=== PATIENT | male | born 1955 | race Caucasian/White ===

== ENCOUNTER 2018-03-11 11:12 | Day surgery (SDC) | payer OTHER ==
[~2018-03-11] VITALS: Ht 180.3 cm; Wt 129.3 kg
[~2018-03-11 11:12] MED LIST: ALBIPROI INH; ANDROGEL PUMP TOP; ANTIBIOTIC; ATECHL PO; ATEN25; BP MEDICATION; BUPR75 PO; CEPH500; CEPH500 PO; GABA600 PO; HYDACE10B PO; HYDR1TAB94 PO; Hydrocodone-Ap1 EA20 PO; IBUP400 PO; IBUP800; IBUP800 PO; LACT10SY PO; LEVSOD50 PO; LISI5 PO; LISINOPRIL PO; NAPR500 PO; OMEG1CAP30 PO; OXYACE5T; OXYACE5T PO; OXYC10ER PO; OXYC15ER PO; SERT100 PO; SULTRIDS PO; XARELTO10 MG PO
[2018-03-12 04:51] LABS: BASOPHILS ABSOLUTE AUTO 0.07 K/mm3 (0.00-0.23); BASOPHILS PERCENT AUTO 1 % (0-2); EOSINOPHILS ABSOLUTE AUTO 0.01 K/mm3 (0.00-0.68); EOSINOPHILS PERCENT AUTO 0 % (0-6); Hematocrit 46.6 % (37.0-53.0); Hemoglobin 15.9 g/dL (13.5-17.5); IMMATURE GRAN ABSOLUTE AUTO 0.09 K/mm3 (0.00-0.10); IMMATURE GRAN PERCENT AUTO 1 % (0-1); LYMPHOCYTES ABSOLUTE AUTO 2.74 K/mm3 (0.84-5.20); LYMPHOCYTES PERCENT AUTO 18 % (21-46); MONOCYTES ABSOLUTE AUTO 1.13 K/mm3 (0.16-1.47); MONOCYTES PERCENT AUTO 8 % (4-13); Mean Corpuscular HGB 31.7 pg (26.0-34.0); Mean Corpuscular HGB Conc 34.1 g/dL (31.5-36.5); Mean Corpuscular Volume 93 fL (80-100); Mean Platelet Volume 10.4 fL (9.1-12.4); NEUTROPHILS ABSOLUTE AUTO 10.99 K/mm3 (1.96-9.15); NEUTROPHILS PERCENT AUTO 73 % (41-73); Platelet Count 320 K/mm3 (150-400); RDW Standard Deviation 47.4 fL (35.1-46.3); Red Blood Cell Count 5.02 M/mm3 (4.30-5.90); White Blood Cell Count 15.03 K/mm3 (4.00-11.30)
[2018-03-12 05:19] LABS: Anion Gap 10 mmol/L (6-16); Blood Urea Nitrogen 28 mg/dL (8-24); Bun/Creatinine Ratio 26.4 (12.0-20.0); CO2, Blood 23 mmol/L (21-32); Calcium, Blood 9.6 mg/dL (8.5-10.1); Chloride, Blood 107 mmol/L (98-108); Creatinine, Blood 1.06 mg/dL (0.60-1.20); Glomerular Filtration Rate >60 (60-); Glucose, Blood 146 mg/dL (70-99); Magnesium, Blood 2.2 mg/dL (1.6-2.4); Potassium, Blood 3.6 mmol/L (3.5-5.5); Sodium, Blood 140 mmol/L (136-145)
[2018-03-12] MEDS ORDERED: Percocet 5-3251 EACH PO (13:34)
[2018-03-12] MEDS ORDERED: ASPI325EC PO (13:35)
== END 2018-03-12 15:22 | disposition home or self-care (01) ==
LOC: ORSCMMR 11:12 → ORD 13:00 → ORSCMMR 16:35 → SURS 16:35 → ORSCMMR 16:35 → SURS 03-12 15:22
PROVIDERS: Orthopaedic Surgery
PROC: 0SRW0JZ Replacement of Left Knee Joint, Tibial Surface with Synthetic Substitute, Open Approach (ICD-10-PCS; principal; 2018-03-11 10:45)
PROC: 0SPW0JZ Removal of Synthetic Substitute from Left Knee Joint, Tibial Surface, Open Approach (ICD-10-PCS; principal; 2018-03-11 10:45)
DX: M25.362 Other instability, left knee (principal); Z96.652 Presence of left artificial knee joint; I10 Essential (primary) hypertension; F17.210 Nicotine dependence, cigarettes, uncomplicated; E66.01 Morbid (severe) obesity due to excess calories; Z68.39 Body mass index [BMI] 39.0-39.9, adult; Z79.899 Other long term (current) drug therapy
CPT/HCPCS: 36415; 73560-LT; 80048; 82947; 83735; 85025; 86850; 86900; 86901; 88305; 97110; 97116; 97161; 97530; C1776; G8978; G8979; G8980; J0171; J0690; J0735; J1100; J1885; J2250; J2795; J3010; J7120

== ENCOUNTER → 2018-03-30 | Outpatient (CLI) | payer OTHER ==
[~2018-03-30] MED LIST changes: +ASPI325EC PO; +Percocet 5-3251 EACH PO
== END | disposition home or self-care (01) ==
LOC: LAB SHORT 14:35 → LAB 14:35
DX: L03.116 Cellulitis of left lower limb (principal); Z96.652 Presence of left artificial knee joint
CPT/HCPCS: 87070; 87205

== ENCOUNTER → 2018-04-08 | Outpatient (CLI) | payer OTHER ==
[2018-04-08 16:32] LABS: Body Fluid Crystals NEG (NEGATIVE)
[2018-04-08 17:06] LABS: BODY FLUID RBC 0.199 (0-0); RBC Count, Synovial Fluid 199000 /mm3 (0-0)
[2018-04-08 17:17] LABS: WBC Count, Synovial Fluid 42510 /mm3 (0-180)
[2018-04-08 17:22] LABS: Lymphs, Synovial Fluid 1 % (0-15); Monocytes/Macrophages, Synovia 1 % (0-65); Neutrophils, Synovial Fluid 98 % (0-24)
[2018-04-08 17:23] LABS: Appearance, Synovial Fluid Bloody (Clear); Color, Synovial Fluid Red (None-P Yel)
== END | disposition home or self-care (01) ==
LOC: LAB SHORT 15:50 → LAB 15:50
PROVIDERS: Orthopaedic Surgery
DX: M25.462 Effusion, left knee (principal)
CPT/HCPCS: 89051; 89060

== ENCOUNTER 2018-04-13 17:09 | Inpatient (IN) | payer OTHER ==
[~2018-04-13] VITALS: Ht 177.8 cm; Wt 126.0 kg
[2018-04-16 05:43] LABS: BASOPHILS ABSOLUTE AUTO 0.06 K/mm3 (0.00-0.23); BASOPHILS PERCENT AUTO 0 % (0-2); EOSINOPHILS PERCENT AUTO 0 % (0-6); Hematocrit 37.7 % (37.0-53.0); Hemoglobin 12.4 g/dL (13.5-17.5); IMMATURE GRAN ABSOLUTE AUTO 0.08 K/mm3 (0.00-0.10); IMMATURE GRAN PERCENT AUTO 1 % (0-1); LYMPHOCYTES ABSOLUTE AUTO 1.91 K/mm3 (0.84-5.20); LYMPHOCYTES PERCENT AUTO 14 % (21-46); MONOCYTES ABSOLUTE AUTO 1.11 K/mm3 (0.16-1.47); MONOCYTES PERCENT AUTO 8 % (4-13); Mean Corpuscular HGB 30.6 pg (26.0-34.0); Mean Corpuscular HGB Conc 32.9 g/dL (31.5-36.5); Mean Corpuscular Volume 93 fL (80-100); Mean Platelet Volume 9.8 fL (9.1-12.4); NEUTROPHILS ABSOLUTE AUTO 10.32 K/mm3 (1.96-9.15); NEUTROPHILS PERCENT AUTO 77 % (41-73); Platelet Count 351 K/mm3 (150-400); RDW Coefficient Variation 13.7 % (11.7-14.2); RDW Standard Deviation 47.3 fL (35.1-46.3); Red Blood Cell Count 4.05 M/mm3 (4.30-5.90); White Blood Cell Count 13.48 K/mm3 (4.00-11.30)
[2018-04-16 06:04] LABS: Anion Gap 9 mmol/L (6-16); Blood Urea Nitrogen 22 mg/dL (8-24); Bun/Creatinine Ratio 21.8 (12.0-20.0); CO2, Blood 24 mmol/L (21-32); Chloride, Blood 106 mmol/L (98-108); Creatinine, Blood 1.01 mg/dL (0.60-1.20); Glomerular Filtration Rate >60 (60-); Glucose, Blood 173 mg/dL (70-99); Potassium, Blood 4.2 mmol/L (3.5-5.5); Sodium, Blood 139 mmol/L (136-145)
[2018-04-17 09:22] LABS: BASOPHILS ABSOLUTE AUTO 0.13 K/mm3 (0.00-0.23); BASOPHILS PERCENT AUTO 1 % (0-2); EOSINOPHILS PERCENT AUTO 0 % (0-6); Hemoglobin 13.3 g/dL (13.5-17.5); IMMATURE GRAN ABSOLUTE AUTO 0.08 K/mm3 (0.00-0.10); IMMATURE GRAN PERCENT AUTO 1 % (0-1); LYMPHOCYTES ABSOLUTE AUTO 2.95 K/mm3 (0.84-5.20); LYMPHOCYTES PERCENT AUTO 26 % (21-46); MONOCYTES ABSOLUTE AUTO 0.95 K/mm3 (0.16-1.47); MONOCYTES PERCENT AUTO 8 % (4-13); Mean Corpuscular HGB 30.5 pg (26.0-34.0); Mean Corpuscular HGB Conc 32.4 g/dL (31.5-36.5); Mean Corpuscular Volume 94 fL (80-100); Mean Platelet Volume 9.9 fL (9.1-12.4); NEUTROPHILS ABSOLUTE AUTO 7.22 K/mm3 (1.96-9.15); NEUTROPHILS PERCENT AUTO 64 % (41-73); Platelet Count 363 K/mm3 (150-400); RDW Coefficient Variation 13.8 % (11.7-14.2); Red Blood Cell Count 4.36 M/mm3 (4.30-5.90); White Blood Cell Count 11.33 K/mm3 (4.00-11.30)
[2018-04-17 09:38] LABS: Anion Gap 7 mmol/L (6-16); Blood Urea Nitrogen 25 mg/dL (8-24); Bun/Creatinine Ratio 25.3 (12.0-20.0); CO2, Blood 27 mmol/L (21-32); Calcium, Blood 9.4 mg/dL (8.5-10.1); Chloride, Blood 105 mmol/L (98-108); Creatinine, Blood 0.99 mg/dL (0.60-1.20); Glomerular Filtration Rate >60 (60-); Glucose, Blood 160 mg/dL (70-99); Sodium, Blood 139 mmol/L (136-145)
[2018-04-17 09:51] LABS: Vancomycin, Trough 20.2 ug/mL (5.0-10.0)
[2018-04-18 03:58] LABS: BASOPHILS ABSOLUTE AUTO 0.08 K/mm3 (0.00-0.23); BASOPHILS PERCENT AUTO 1 % (0-2); EOSINOPHILS PERCENT AUTO 0 % (0-6); Hematocrit 37.9 % (37.0-53.0); Hemoglobin 12.5 g/dL (13.5-17.5); IMMATURE GRAN ABSOLUTE AUTO 0.05 K/mm3 (0.00-0.10); IMMATURE GRAN PERCENT AUTO 1 % (0-1); LYMPHOCYTES ABSOLUTE AUTO 2.67 K/mm3 (0.84-5.20); LYMPHOCYTES PERCENT AUTO 27 % (21-46); MONOCYTES ABSOLUTE AUTO 1.08 K/mm3 (0.16-1.47); MONOCYTES PERCENT AUTO 11 % (4-13); Mean Corpuscular HGB 30.9 pg (26.0-34.0); Mean Corpuscular Volume 94 fL (80-100); Mean Platelet Volume 9.7 fL (9.1-12.4); NEUTROPHILS ABSOLUTE AUTO 5.95 K/mm3 (1.96-9.15); NEUTROPHILS PERCENT AUTO 61 % (41-73); Platelet Count 331 K/mm3 (150-400); RDW Coefficient Variation 13.7 % (11.7-14.2); RDW Standard Deviation 47.6 fL (35.1-46.3); Red Blood Cell Count 4.04 M/mm3 (4.30-5.90); White Blood Cell Count 9.83 K/mm3 (4.00-11.30)
[2018-04-18 04:14] LABS: Anion Gap 7 mmol/L (6-16); Blood Urea Nitrogen 26 mg/dL (8-24); CO2, Blood 27 mmol/L (21-32); Calcium, Blood 9.4 mg/dL (8.5-10.1); Chloride, Blood 107 mmol/L (98-108); Creatinine, Blood 0.93 mg/dL (0.60-1.20); Glomerular Filtration Rate >60 (60-); Glucose, Blood 125 mg/dL (70-99); Potassium, Blood 4.3 mmol/L (3.5-5.5); Sodium, Blood 141 mmol/L (136-145)
[2018-04-19 05:25] LABS: Vancomycin, Trough 15.8 ug/mL (5.0-10.0)
[2018-04-19] MEDS ORDERED: Percocet 5-3251 EACH PO ×2 (10:29)
[2018-04-19] MEDS ORDERED: ASPI325EC PO ×2 (10:30)
[2018-04-21 11:48] LABS: Creatinine, Blood 1.11 mg/dL (0.60-1.20); Vancomycin, Trough 16.6 ug/mL (5.0-10.0)
== END 2018-04-21 18:00 | disposition home or self-care (01) | DRG 486 ==
LOC: SURS 04-15 13:55 → PRE IP 04-15 15:30 → SURS 04-15 19:27
PROVIDERS: Orthopaedic Surgery; Pharmacist
PROC: 0SUW09Z Supplement Left Knee Joint, Tibial Surface with Liner, Open Approach (ICD-10-PCS; 2018-04-15)
PROC: 0QDH0ZZ Extraction of Left Tibia, Open Approach (ICD-10-PCS; 2018-04-15)
PROC: 0SPD09Z Removal of Liner from Left Knee Joint, Open Approach (ICD-10-PCS; principal; 2018-04-15 15:30)
PROC: 02HV33Z Insertion of Infusion Device into Superior Vena Cava, Percutaneous Approach (ICD-10-PCS; 2018-04-16)
PROC: B548ZZA Ultrasonography of Superior Vena Cava, Guidance (ICD-10-PCS; 2018-04-16)
DX: T84.54XA Infection and inflammatory reaction due to internal left knee prosthesis, initial encounter (principal); L03.116 Cellulitis of left lower limb; Z68.41 Body mass index [BMI] 40.0-44.9, adult; E66.01 Morbid (severe) obesity due to excess calories; I10 Essential (primary) hypertension; E78.1 Pure hyperglyceridemia; M19.91 Primary osteoarthritis, unspecified site; M54.5 Low back pain; G89.29 Other chronic pain; F17.210 Nicotine dependence, cigarettes, uncomplicated; Z96.652 Presence of left artificial knee joint
CPT/HCPCS: 36415; 73560-LT; 80048; 80202; 82565; 85025; 87070; 87075; 87205; 87493; 97110; 97116; 97161; 97530; C1751; C1776; G8978; G8979; G8980; J0690; J1100; J1885; J2250; J2405; J2543; J3010; J3370; J7050; J7120

== ENCOUNTER 2018-04-26 00:11 | Day surgery (SDC) | payer OTHER ==
[2018-04-26 13:58] LABS: Creatinine, Blood 1.04 mg/dL (0.60-1.20); Vancomycin, Trough 10.4 ug/mL (5.0-10.0)
== END 2018-04-26 16:27 | disposition home or self-care (01) ==
LOC: ATC 00:11
PROVIDERS: Orthopaedic Surgery
DX: T81.4XXA Infection following a procedure, initial encounter (principal); Z96.652 Presence of left artificial knee joint
CPT/HCPCS: 80202; 82565; 96365; 96366; J3370; J7050

== ENCOUNTER 2018-04-27 13:23 | Day surgery (SDC) | payer OTHER ==
[2018-04-28] MEDS ORDERED: VANCO 2 GR2 GM/250 M IV (13:45)
== END 2018-04-27 16:03 | disposition home or self-care (01) ==
LOC: ATC 13:23
DX: T81.4XXA Infection following a procedure, initial encounter (principal)
CPT/HCPCS: 96365; 96366; J3370; J7050

== ENCOUNTER 2018-04-28 00:25 | Day surgery (SDC) | payer OTHER ==
[2018-04-28] MEDS ORDERED: VANCO 2 GR2 GM/250 M IV (13:45)
[2018-05-03] MEDS ORDERED: DIPHEDRYL PO (13:49)
== END 2018-04-28 15:59 | disposition home or self-care (01) ==
LOC: ATC 00:25
DX: T81.4XXA Infection following a procedure, initial encounter (principal)
CPT/HCPCS: 96365; 96366; J3370; J7050

== ENCOUNTER 2018-04-29 00:09 | Day surgery (SDC) | payer OTHER ==
[~2018-04-29 00:09] MED LIST changes: +VANCO 2 GR2 GM/250 M IV
[2018-04-29 14:40] LABS: Creatinine, Blood 1.27 mg/dL (0.60-1.20); Vancomycin, Trough 11.2 ug/mL (5.0-10.0)
[2018-05-03] MEDS ORDERED: DIPHEDRYL PO (13:49)
== END 2018-04-29 15:30 | disposition home or self-care (01) ==
LOC: ATC 00:09
PROVIDERS: Orthopaedic Surgery
DX: T81.4XXA Infection following a procedure, initial encounter (principal)
CPT/HCPCS: 80202; 82565; 96374; J0696

== ENCOUNTER 2018-05-01 13:29 | Day surgery (SDC) | payer OTHER ==
[2018-05-01] MEDS ORDERED: Ceftriaxone2 G2 IV (15:23)
[2018-05-03] MEDS ORDERED: DIPHEDRYL PO (13:49)
== END 2018-05-01 13:53 | disposition home or self-care (01) ==
LOC: ATC 13:29
DX: T81.4XXA Infection following a procedure, initial encounter (principal)
CPT/HCPCS: 96374; J0696

== ENCOUNTER 2018-05-04 13:54 | Inpatient (IN) | payer MEDICARE, OTHER ==
[~2018-05-04] VITALS: Ht 182.9 cm; Wt 130.1 kg
[~2018-05-04 13:54] MED LIST changes: +Ceftriaxone2 G2 IV; +DIPHEDRYL PO
[2018-05-04 16:30] LABS: Albumin, Blood 2.8 g/dL (3.4-5.0); Albumin/Globulin Ratio 0.6 (0.8-1.8); Bilirubin, Total 0.3 mg/dL (0.1-1.0); Bun/Creatinine Ratio 17.3 (12.0-20.0); Calcium, Blood 9.5 mg/dL (8.5-10.1); Creatinine, Blood 1.91 mg/dL (0.60-1.20); Globulin, Blood 4.4 g/dL (2.2-4.0); Potassium, Blood 4.1 mmol/L (3.5-5.5); Total Protein, Blood 7.2 g/dL (6.4-8.2)
[2018-05-04 17:53] LABS: Hematocrit 40.3 % (37.0-53.0); Hemoglobin 13.5 g/dL (13.5-17.5); Mean Corpuscular HGB 30.4 pg (26.0-34.0); Mean Corpuscular HGB Conc 33.5 g/dL (31.5-36.5); Mean Corpuscular Volume 91 fL (80-100); Mean Platelet Volume 10.6 fL (9.1-12.4); Platelet Count 312 K/mm3 (150-400); RDW Coefficient Variation 14.9 % (11.7-14.2); RDW Standard Deviation 49.2 fL (35.1-46.3); Red Blood Cell Count 4.44 M/mm3 (4.30-5.90); White Blood Cell Count 20.56 K/mm3 (4.00-11.30)
[2018-05-04 18:16] LABS: BASOPHILS PERCENT MAN 0 % (0-2); EOSINOPHILS ABSOLUTE MAN 5.34 K/mm3 (0.00-0.68); EOSINOPHILS PERCENT MAN 26 % (0-6); LYMPHOCYTES ABSOLUTE MAN 2.26 K/mm3 (0.84-5.20); LYMPHOCYTES PERCENT MAN 11 % (21-46); MONOCYTES ABSOLUTE MAN 0.82 K/mm3 (0.16-1.47); MONOCYTES PERCENT MAN 4 % (4-13); NEUTROPHILS ABSOLUTE MAN 12.13 K/mm3 (1.96-9.15); SEG NEUTROPHILS PERCENT MAN 59 % (41-73); TOTAL CELLS COUNTED 100
[2018-05-04] MEDS ORDERED: Norco 10-325 T1 EACH PO (18:30)
[2018-05-05 04:15] LABS: Source, Urine Clean Catch
[2018-05-05 04:17] LABS: Blood, Urine 1+ (Neg); Glucose Qualitative, Urine Neg (Neg); Ketones, Urine Neg (Neg); Leukocyte Esterase, Urine 1+ (Neg); Nitrite, Urine Neg (Neg); Protein, Urine 1+ (Neg); Urobilinogen, Urine NORM (Normal)
[2018-05-05 04:44] LABS: Appearance, Urine Clear (Clear); Bilirubin, Urine 1+ (Neg); Color, Urine Amber (P-Yellow)
[2018-05-05 04:45] LABS: Bacteria Few /hpf; Hyaline Casts 25-50 /lpf (0-2); Mucus Light (0-Heavy); Squamous Epithelial Cells Few /hpf (Few); White Blood Cells, Urine 0-2 /hpf (0-5)
[2018-05-05 05:18] LABS: Hematocrit 37.7 % (37.0-53.0); Hemoglobin 12.5 g/dL (13.5-17.5); Mean Corpuscular HGB 30.3 pg (26.0-34.0); Mean Corpuscular HGB Conc 33.2 g/dL (31.5-36.5); Mean Corpuscular Volume 91 fL (80-100); Mean Platelet Volume 10.8 fL (9.1-12.4); Platelet Count 279 K/mm3 (150-400); RDW Standard Deviation 49.7 fL (35.1-46.3); Red Blood Cell Count 4.13 M/mm3 (4.30-5.90); White Blood Cell Count 20.22 K/mm3 (4.00-11.30)
[2018-05-05 05:34] LABS: BAND PERCENT MAN 15 % (0-8); BASOPHILS PERCENT MAN 1 % (0-2); EOSINOPHILS ABSOLUTE MAN 5.66 K/mm3 (0.00-0.68); EOSINOPHILS PERCENT MAN 28 % (0-6); LYMPHOCYTES ABSOLUTE MAN 2.02 K/mm3 (0.84-5.20); LYMPHOCYTES PERCENT MAN 10 % (21-46); METAMYELOCYTE PERCENT MAN 3 % (0-0); MONOCYTES ABSOLUTE MAN 1.01 K/mm3 (0.16-1.47); MONOCYTES PERCENT MAN 5 % (4-13); NEUTROPHILS ABSOLUTE MAN 10.71 K/mm3 (1.96-9.15); SEG NEUTROPHILS PERCENT MAN 38 % (41-73); TOTAL CELLS COUNTED 100
[2018-05-05 06:01] LABS: Albumin, Blood 2.4 g/dL (3.4-5.0); Albumin/Globulin Ratio 0.6 (0.8-1.8); Bilirubin, Total 0.4 mg/dL (0.1-1.0); Bun/Creatinine Ratio 18.9 (12.0-20.0); C-REACTIVE PROTEIN, EXT RANGE 7.95 mg/dL (0.000-0.300); Calcium, Blood 8.7 mg/dL (8.5-10.1); Creatinine, Blood 1.96 mg/dL (0.60-1.20); Thyroid Stimulating Hormone 1.93 uIU/mL (0.360-4.800); Total Protein, Blood 6.4 g/dL (6.4-8.2)
[2018-05-06 06:24] LABS: Hematocrit 35.9 % (37.0-53.0); Hemoglobin 11.9 g/dL (13.5-17.5); Mean Corpuscular HGB 30.5 pg (26.0-34.0); Mean Corpuscular HGB Conc 33.1 g/dL (31.5-36.5); Mean Corpuscular Volume 92 fL (80-100); Mean Platelet Volume 10.5 fL (9.1-12.4); NRBC ABSOLUTE 0.02 K/mm3 (0.00-0.02); NRBC Auto 0.1 /100 WBC (0.0-0.2); Platelet Count 330 K/mm3 (150-400); RDW Coefficient Variation 15.2 % (11.7-14.2); RDW Standard Deviation 50.5 fL (35.1-46.3); White Blood Cell Count 31.08 K/mm3 (4.00-11.30)
[2018-05-06 06:42] LABS: Albumin, Blood 2.4 g/dL (3.4-5.0); Albumin/Globulin Ratio 0.6 (0.8-1.8); Bilirubin, Total 0.2 mg/dL (0.1-1.0); Bun/Creatinine Ratio 20.7 (12.0-20.0); Creatinine, Blood 1.74 mg/dL (0.60-1.20); Globulin, Blood 3.9 g/dL (2.2-4.0); Potassium, Blood 4.3 mmol/L (3.5-5.5); Total Protein, Blood 6.3 g/dL (6.4-8.2)
[2018-05-06 06:51] LABS: BAND PERCENT MAN 3 % (0-8); BASOPHILS PERCENT MAN 0 % (0-2); LYMPHOCYTES ABSOLUTE MAN 3.72 K/mm3 (0.84-5.20); LYMPHOCYTES PERCENT MAN 12 % (21-46); METAMYELOCYTE ABSOLUTE MAN 0.31 K/mm3 (0.00-0.00); METAMYELOCYTE PERCENT MAN 1 % (0-0); MYELOCYTE ABSOLUTE MAN 0.62 K/mm3 (0.00-0.00); MYELOCYTE PERCENT MAN 2 % (0-0); NEUTROPHILS ABSOLUTE MAN 21.13 K/mm3 (1.96-9.15); SEG NEUTROPHILS PERCENT MAN 65 % (41-73); TOTAL CELLS COUNTED 100
[2018-05-06 06:52] LABS: EOSINOPHILS ABSOLUTE MAN 2.48 K/mm3 (0.00-0.68); EOSINOPHILS PERCENT MAN 8 % (0-6); MONOCYTES ABSOLUTE MAN 2.79 K/mm3 (0.16-1.47); MONOCYTES PERCENT MAN 9 % (4-13)
[2018-05-07 04:45] LABS: Hematocrit 35.5 % (37.0-53.0); Hemoglobin 11.5 g/dL (13.5-17.5); Mean Corpuscular HGB 29.7 pg (26.0-34.0); Mean Corpuscular HGB Conc 32.4 g/dL (31.5-36.5); Mean Corpuscular Volume 92 fL (80-100); Mean Platelet Volume 10.7 fL (9.1-12.4); NRBC ABSOLUTE 0.02 K/mm3 (0.00-0.02); NRBC Auto 0.1 /100 WBC (0.0-0.2); Platelet Count 371 K/mm3 (150-400); RDW Coefficient Variation 15.4 % (11.7-14.2); RDW Standard Deviation 50.3 fL (35.1-46.3); Red Blood Cell Count 3.87 M/mm3 (4.30-5.90); White Blood Cell Count 37.17 K/mm3 (4.00-11.30)
[2018-05-07 05:08] LABS: BAND PERCENT MAN 2 % (0-8); BASOPHILS ABSOLUTE MAN 0.74 K/mm3 (0.00-0.23); BASOPHILS PERCENT MAN 2 % (0-2); EOSINOPHILS ABSOLUTE MAN 8.17 K/mm3 (0.00-0.68); EOSINOPHILS PERCENT MAN 22 % (0-6); LYMPHOCYTES PERCENT MAN 28 % (21-46); MONOCYTES PERCENT MAN 7 % (4-13); MYELOCYTE ABSOLUTE MAN 0.74 K/mm3 (0.00-0.00); MYELOCYTE PERCENT MAN 2 % (0-0); NEUTROPHILS ABSOLUTE MAN 14.49 K/mm3 (1.96-9.15); SEG NEUTROPHILS PERCENT MAN 37 % (41-73); TOTAL CELLS COUNTED 100
[2018-05-07 05:17] LABS: Albumin, Blood 2.4 g/dL (3.4-5.0); Albumin/Globulin Ratio 0.6 (0.8-1.8); Bilirubin, Total 0.3 mg/dL (0.1-1.0); Bun/Creatinine Ratio 23.9 (12.0-20.0); Calcium, Blood 8.7 mg/dL (8.5-10.1); Creatinine, Blood 1.42 mg/dL (0.60-1.20); Globulin, Blood 3.7 g/dL (2.2-4.0); Potassium, Blood 3.6 mmol/L (3.5-5.5); Total Protein, Blood 6.1 g/dL (6.4-8.2)
[2018-05-08 08:11] LABS: Hematocrit 33.6 % (37.0-53.0); Hemoglobin 10.9 g/dL (13.5-17.5); Mean Corpuscular HGB 29.7 pg (26.0-34.0); Mean Corpuscular HGB Conc 32.4 g/dL (31.5-36.5); Mean Corpuscular Volume 92 fL (80-100); Mean Platelet Volume 10.5 fL (9.1-12.4); Platelet Count 344 K/mm3 (150-400); RDW Coefficient Variation 15.6 % (11.7-14.2); RDW Standard Deviation 50.8 fL (35.1-46.3); Red Blood Cell Count 3.67 M/mm3 (4.30-5.90); White Blood Cell Count 35.59 K/mm3 (4.00-11.30)
[2018-05-08 08:26] LABS: C-REACTIVE PROTEIN, EXT RANGE 1.56 mg/dL (0.000-0.300)
[2018-05-08 08:48] LABS: BASOPHILS ABSOLUTE MAN 0.35 K/mm3 (0.00-0.23); BASOPHILS PERCENT MAN 1 % (0-2); EOSINOPHILS PERCENT MAN 0 % (0-6); LYMPHOCYTES ABSOLUTE MAN 8.18 K/mm3 (0.84-5.20); LYMPHOCYTES PERCENT MAN 23 % (21-46); METAMYELOCYTE ABSOLUTE MAN 0.71 K/mm3 (0.00-0.00); METAMYELOCYTE PERCENT MAN 2 % (0-0); MONOCYTES PERCENT MAN 9 % (4-13); NEUTROPHILS ABSOLUTE MAN 23.13 K/mm3 (1.96-9.15); SEG NEUTROPHILS PERCENT MAN 65 % (41-73); TOTAL CELLS COUNTED 100
[2018-05-08 09:07] LABS: Bun/Creatinine Ratio 26.3 (12.0-20.0); Calcium, Blood 9.2 mg/dL (8.5-10.1); Creatinine, Blood 1.33 mg/dL (0.60-1.20); Potassium, Blood 4.1 mmol/L (3.5-5.5)
[2018-05-08 12:07] LABS: IMMUNOGLOBULIN G, QN, SERUM 1256 mg/dL (700-1600)
[2018-05-09 03:22] LABS: Hematocrit 33.4 % (37.0-53.0); Hemoglobin 11.1 g/dL (13.5-17.5); Mean Corpuscular HGB 30.7 pg (26.0-34.0); Mean Corpuscular HGB Conc 33.2 g/dL (31.5-36.5); Mean Corpuscular Volume 93 fL (80-100); Mean Platelet Volume 10.6 fL (9.1-12.4); Platelet Count 367 K/mm3 (150-400); RDW Coefficient Variation 15.8 % (11.7-14.2); RDW Standard Deviation 51.9 fL (35.1-46.3); Red Blood Cell Count 3.61 M/mm3 (4.30-5.90); White Blood Cell Count 34.42 K/mm3 (4.00-11.30)
[2018-05-09 03:36] LABS: Bun/Creatinine Ratio 32.3 (12.0-20.0); Calcium, Blood 8.8 mg/dL (8.5-10.1); Creatinine, Blood 1.3 mg/dL (0.60-1.20)
[2018-05-09 03:40] LABS: BAND PERCENT MAN 9 % (0-8); BASOPHILS PERCENT MAN 0 % (0-2); EOSINOPHILS ABSOLUTE MAN 0.34 K/mm3 (0.00-0.68); EOSINOPHILS PERCENT MAN 1 % (0-6); LYMPHOCYTES PERCENT MAN 16 % (21-46); METAMYELOCYTE ABSOLUTE MAN 0.34 K/mm3 (0.00-0.00); METAMYELOCYTE PERCENT MAN 1 % (0-0); MONOCYTES ABSOLUTE MAN 1.37 K/mm3 (0.16-1.47); MONOCYTES PERCENT MAN 4 % (4-13); NEUTROPHILS ABSOLUTE MAN 26.84 K/mm3 (1.96-9.15); SEG NEUTROPHILS PERCENT MAN 69 % (41-73); TOTAL CELLS COUNTED 100
[2018-05-10 04:30] LABS: Hematocrit 32.2 % (37.0-53.0); Hemoglobin 10.6 g/dL (13.5-17.5); Mean Corpuscular HGB 30.2 pg (26.0-34.0); Mean Corpuscular HGB Conc 32.9 g/dL (31.5-36.5); Mean Corpuscular Volume 92 fL (80-100); Mean Platelet Volume 10.8 fL (9.1-12.4); NRBC ABSOLUTE 0.02 K/mm3 (0.00-0.02); NRBC Auto 0.1 /100 WBC (0.0-0.2); Platelet Count 331 K/mm3 (150-400); RDW Coefficient Variation 16.1 % (11.7-14.2); RDW Standard Deviation 51.8 fL (35.1-46.3); Red Blood Cell Count 3.51 M/mm3 (4.30-5.90); White Blood Cell Count 22.78 K/mm3 (4.00-11.30)
[2018-05-10 04:48] LABS: Anion Gap 9 mmol/L (6-16); Blood Urea Nitrogen 47 mg/dL (8-24); Bun/Creatinine Ratio 38.8 (12.0-20.0); CO2, Blood 25 mmol/L (21-32); Calcium, Blood 8.6 mg/dL (8.5-10.1); Chloride, Blood 107 mmol/L (98-108); Creatinine, Blood 1.21 mg/dL (0.60-1.20); Glomerular Filtration Rate >60 (60-); Glucose, Blood 277 mg/dL (70-99); Sodium, Blood 141 mmol/L (136-145)
[2018-05-10 05:00] LABS: BAND PERCENT MAN 5 % (0-8); BASOPHILS PERCENT MAN 0 % (0-2); EOSINOPHILS PERCENT MAN 0 % (0-6); LYMPHOCYTES ABSOLUTE MAN 4.32 K/mm3 (0.84-5.20); LYMPHOCYTES PERCENT MAN 19 % (21-46); METAMYELOCYTE ABSOLUTE MAN 0.45 K/mm3 (0.00-0.00); METAMYELOCYTE PERCENT MAN 2 % (0-0); MONOCYTES ABSOLUTE MAN 1.36 K/mm3 (0.16-1.47); MONOCYTES PERCENT MAN 6 % (4-13); NEUTROPHILS ABSOLUTE MAN 16.62 K/mm3 (1.96-9.15); SEG NEUTROPHILS PERCENT MAN 68 % (41-73); TOTAL CELLS COUNTED 100
[2018-05-11 04:01] LABS: Hematocrit 33.1 % (37.0-53.0); Hemoglobin 10.8 g/dL (13.5-17.5); Mean Corpuscular HGB 30.3 pg (26.0-34.0); Mean Corpuscular HGB Conc 32.6 g/dL (31.5-36.5); Mean Corpuscular Volume 93 fL (80-100); Mean Platelet Volume 10.3 fL (9.1-12.4); NRBC ABSOLUTE 0.02 K/mm3 (0.00-0.02); NRBC Auto 0.1 /100 WBC (0.0-0.2); Platelet Count 336 K/mm3 (150-400); RDW Coefficient Variation 16.1 % (11.7-14.2); RDW Standard Deviation 53.2 fL (35.1-46.3); Red Blood Cell Count 3.56 M/mm3 (4.30-5.90); White Blood Cell Count 21.19 K/mm3 (4.00-11.30)
[2018-05-11 04:15] LABS: Anion Gap 7 mmol/L (6-16); Blood Urea Nitrogen 48 mg/dL (8-24); Bun/Creatinine Ratio 41.4 (12.0-20.0); CO2, Blood 27 mmol/L (21-32); Calcium, Blood 8.5 mg/dL (8.5-10.1); Chloride, Blood 111 mmol/L (98-108); Creatinine, Blood 1.16 mg/dL (0.60-1.20); Glomerular Filtration Rate >60 (60-); Glucose, Blood 94 mg/dL (70-99); Potassium, Blood 3.7 mmol/L (3.5-5.5); Sodium, Blood 145 mmol/L (136-145)
[2018-05-11 05:57] LABS: BAND PERCENT MAN 1 % (0-8); BASOPHILS PERCENT MAN 0 % (0-2); EOSINOPHILS ABSOLUTE MAN 2.11 K/mm3 (0.00-0.68); EOSINOPHILS PERCENT MAN 10 % (0-6); LYMPHOCYTES ABSOLUTE MAN 6.35 K/mm3 (0.84-5.20); LYMPHOCYTES PERCENT MAN 30 % (21-46); MONOCYTES ABSOLUTE MAN 2.33 K/mm3 (0.16-1.47); MONOCYTES PERCENT MAN 11 % (4-13); NEUTROPHILS ABSOLUTE MAN 10.38 K/mm3 (1.96-9.15); SEG NEUTROPHILS PERCENT MAN 48 % (41-73); TOTAL CELLS COUNTED 100
[2018-05-12 05:08] LABS: Hemoglobin 10.2 g/dL (13.5-17.5); Mean Corpuscular HGB 30.4 pg (26.0-34.0); Mean Corpuscular HGB Conc 32.9 g/dL (31.5-36.5); Mean Corpuscular Volume 93 fL (80-100); Mean Platelet Volume 10.8 fL (9.1-12.4); NRBC ABSOLUTE 0.02 K/mm3 (0.00-0.02); NRBC Auto 0.1 /100 WBC (0.0-0.2); Platelet Count 295 K/mm3 (150-400); RDW Coefficient Variation 16.1 % (11.7-14.2); RDW Standard Deviation 53.7 fL (35.1-46.3); Red Blood Cell Count 3.35 M/mm3 (4.30-5.90); White Blood Cell Count 13.67 K/mm3 (4.00-11.30)
[2018-05-12 05:29] LABS: Anion Gap 8 mmol/L (6-16); Blood Urea Nitrogen 46 mg/dL (8-24); Bun/Creatinine Ratio 44.2 (12.0-20.0); CO2, Blood 27 mmol/L (21-32); Calcium, Blood 8.6 mg/dL (8.5-10.1); Chloride, Blood 110 mmol/L (98-108); Creatinine, Blood 1.04 mg/dL (0.60-1.20); Glomerular Filtration Rate >60 (60-); Glucose, Blood 106 mg/dL (70-99); Potassium, Blood 3.8 mmol/L (3.5-5.5); Sodium, Blood 145 mmol/L (136-145)
[2018-05-12 05:38] LABS: BASOPHILS PERCENT MAN 0 % (0-2); EOSINOPHILS ABSOLUTE MAN 0.41 K/mm3 (0.00-0.68); EOSINOPHILS PERCENT MAN 3 % (0-6); LYMPHOCYTES PERCENT MAN 22 % (21-46); MONOCYTES ABSOLUTE MAN 1.09 K/mm3 (0.16-1.47); MONOCYTES PERCENT MAN 8 % (4-13); NEUTROPHILS ABSOLUTE MAN 9.15 K/mm3 (1.96-9.15); SEG NEUTROPHILS PERCENT MAN 67 % (41-73); TOTAL CELLS COUNTED 100
[2018-05-13 05:27] LABS: BASOPHILS ABSOLUTE AUTO 0.02 K/mm3 (0.00-0.23); BASOPHILS PERCENT AUTO 0 % (0-2); EOSINOPHILS ABSOLUTE AUTO 0.01 K/mm3 (0.00-0.68); EOSINOPHILS PERCENT AUTO 0 % (0-6); Hematocrit 33.6 % (37.0-53.0); Hemoglobin 10.8 g/dL (13.5-17.5); IMMATURE GRAN ABSOLUTE AUTO 0.32 K/mm3 (0.00-0.10); IMMATURE GRAN PERCENT AUTO 3 % (0-1); LYMPHOCYTES ABSOLUTE AUTO 3.81 K/mm3 (0.84-5.20); LYMPHOCYTES PERCENT AUTO 29 % (21-46); MONOCYTES ABSOLUTE AUTO 1.29 K/mm3 (0.16-1.47); MONOCYTES PERCENT AUTO 10 % (4-13); Mean Corpuscular HGB 29.5 pg (26.0-34.0); Mean Corpuscular HGB Conc 32.1 g/dL (31.5-36.5); Mean Corpuscular Volume 92 fL (80-100); NEUTROPHILS ABSOLUTE AUTO 7.56 K/mm3 (1.96-9.15); NEUTROPHILS PERCENT AUTO 58 % (41-73); Platelet Count 296 K/mm3 (150-400); RDW Coefficient Variation 16.4 % (11.7-14.2); RDW Standard Deviation 53.4 fL (35.1-46.3); Red Blood Cell Count 3.66 M/mm3 (4.30-5.90); White Blood Cell Count 13.01 K/mm3 (4.00-11.30)
[2018-05-13 05:48] LABS: Anion Gap 6 mmol/L (6-16); Blood Urea Nitrogen 39 mg/dL (8-24); Bun/Creatinine Ratio 37.9 (12.0-20.0); C-REACTIVE PROTEIN, EXT RANGE 0.296 mg/dL (0.000-0.300); CO2, Blood 28 mmol/L (21-32); Calcium, Blood 8.9 mg/dL (8.5-10.1); Chloride, Blood 108 mmol/L (98-108); Creatinine, Blood 1.03 mg/dL (0.60-1.20); Glomerular Filtration Rate >60 (60-); Glucose, Blood 83 mg/dL (70-99); Potassium, Blood 3.9 mmol/L (3.5-5.5); Sodium, Blood 142 mmol/L (136-145)
[2018-05-17 05:08] LABS: Hemoglobin 12.3 g/dL (13.5-17.5); Mean Corpuscular HGB 30.5 pg (26.0-34.0); Mean Corpuscular HGB Conc 32.4 g/dL (31.5-36.5); Mean Corpuscular Volume 94 fL (80-100); Mean Platelet Volume 11.2 fL (9.1-12.4); Platelet Count 319 K/mm3 (150-400); RDW Coefficient Variation 15.9 % (11.7-14.2); RDW Standard Deviation 54.8 fL (35.1-46.3); Red Blood Cell Count 4.03 M/mm3 (4.30-5.90); White Blood Cell Count 15.34 K/mm3 (4.00-11.30)
[2018-05-17 05:33] LABS: Anion Gap 8 mmol/L (6-16); Blood Urea Nitrogen 34 mg/dL (8-24); Bun/Creatinine Ratio 29.8 (12.0-20.0); CO2, Blood 27 mmol/L (21-32); Calcium, Blood 9.2 mg/dL (8.5-10.1); Chloride, Blood 106 mmol/L (98-108); Creatinine, Blood 1.14 mg/dL (0.60-1.20); Glomerular Filtration Rate >60 (60-); Glucose, Blood 75 mg/dL (70-99); Phosphorus, Blood 3.4 mg/dL (2.5-4.9); Potassium, Blood 4.3 mmol/L (3.5-5.5); Sodium, Blood 141 mmol/L (136-145)
[2018-05-17] MEDS ORDERED: ATEN25 PO (11:48)
[2018-05-17] MEDS ORDERED: LISI5 PO (11:49)
[2018-05-17] MEDS ORDERED: DOXY100 PO (11:49)
[2018-05-17] MEDS ORDERED: Bacid1 EACH PO (11:54)
[2018-05-17] MEDS ORDERED: DELTASONE20 MG PO (11:57)
== END 2018-05-17 13:44 | disposition home or self-care (01) | DRG 560 ==
LOC: ER 13:54 → SURS 17:04 → MEDS 17:04 → ENPENDDIS 05-17 11:28 → MEDS 05-17 13:44
PROVIDERS: Emergency Medicine; Family Medicine; Internal Medicine
DX: T84.69XA Infection and inflammatory reaction due to internal fixation device of other site, initial encounter (principal); N17.9 Acute kidney failure, unspecified; N10 Acute pyelonephritis; L27.0 Generalized skin eruption due to drugs and medicaments taken internally; T84.023A Instability of internal left knee prosthesis, initial encounter; I10 Essential (primary) hypertension; E03.9 Hypothyroidism, unspecified; T36.8X5A Adverse effect of other systemic antibiotics, initial encounter; F32.9 Major depressive disorder, single episode, unspecified; F17.210 Nicotine dependence, cigarettes, uncomplicated; M23.52 Chronic instability of knee, left knee; D72.829 Elevated white blood cell count, unspecified; R73.9 Hyperglycemia, unspecified; R60.0 Localized edema; Z96.652 Presence of left artificial knee joint; Z79.82 Long term (current) use of aspirin; Z79.899 Other long term (current) drug therapy; Z88.1 Allergy status to other antibiotic agents; Z90.49 Acquired absence of other specified parts of digestive tract
CPT/HCPCS: 36415; 71046; 73562-LT; 80048; 80053; 80069; 81001; 82787; 82947; 83605; 84443; 85007; 85025; 85027; 85060; 85651; 86140; 87040; 87070; 87205; 87493; 93005; 93010; 93306; 97116; 97162; 97530; 99285-25; G8978; G8979; G8980; J0360; J1650; J1815; J1940; J1956; J2930; J2997; J3010; J7030; J7050; Q0163

== ENCOUNTER 2018-06-02 19:59 | Inpatient (IN) | payer MEDICARE, OTHER ==
[~2018-06-02] VITALS: Ht 182.9 cm; Wt 124.8 kg
[~2018-06-02 19:59] MED LIST changes: +ATEN25 PO; +Bacid1 EACH PO; +DELTASONE20 MG PO; +DOXY100 PO; +Norco 10-325 T1 EACH PO
[2018-06-02] MEDS ORDERED: CYCL10 PO (20:43)
[2018-06-02] MEDS ORDERED: FISH OIL 500 M1 EAC1 PO (20:45)
[2018-06-02] MEDS ORDERED: Hair, Skin & N1 EACH PO (20:47)
[2018-06-02] MEDS ORDERED: NAPR500 PO (20:50)
[2018-06-02] MEDS ORDERED: POTA8 (20:51)
[2018-06-02] MEDS ORDERED: Saw Palmetto500 MG PO (20:51)
[2018-06-03 06:21] LABS: Alanine Aminotransfer (ALT/SGP 19 U/L (12-78); Albumin/Globulin Ratio 0.7 (0.8-1.8); Alk Phos 91 U/L (50-136); Anion Gap 8 mmol/L (6-16); Aspartate Aminotrans (AST/SGOT 11 U/L (12-37); Bilirubin, Total 0.5 mg/dL (0.1-1.0); Blood Urea Nitrogen 23 mg/dL (8-24); Bun/Creatinine Ratio 22.5 (12.0-20.0); CO2, Blood 23 mmol/L (21-32); Calcium, Blood 9.3 mg/dL (8.5-10.1); Chloride, Blood 107 mmol/L (98-108); Creatinine, Blood 1.02 mg/dL (0.60-1.20); Globulin, Blood 4.6 g/dL (2.2-4.0); Glomerular Filtration Rate >60 (60-); Glucose, Blood 152 mg/dL (70-99); Potassium, Blood 4.4 mmol/L (3.5-5.5); Sodium, Blood 138 mmol/L (136-145); Total Protein, Blood 7.6 g/dL (6.4-8.2)
[2018-06-03 15:31] LABS: Hematocrit 38.4 % (37.0-53.0); Hemoglobin 12.3 g/dL (13.5-17.5); Mean Corpuscular HGB 29.4 pg (26.0-34.0); Mean Corpuscular Volume 92 fL (80-100); Mean Platelet Volume 9.8 fL (9.1-12.4); Platelet Count 421 K/mm3 (150-400); RDW Coefficient Variation 15.2 % (11.7-14.2); RDW Standard Deviation 51.6 fL (35.1-46.3); Red Blood Cell Count 4.18 M/mm3 (4.30-5.90); White Blood Cell Count 12.07 K/mm3 (4.00-11.30)
[2018-06-03 16:12] LABS: BASOPHILS PERCENT MAN 0 % (0-2); EOSINOPHILS ABSOLUTE MAN 0.36 K/mm3 (0.00-0.68); EOSINOPHILS PERCENT MAN 3 % (0-6); LYMPHOCYTES ABSOLUTE MAN 3.01 K/mm3 (0.84-5.20); LYMPHOCYTES PERCENT MAN 25 % (21-46); MONOCYTES ABSOLUTE MAN 0.72 K/mm3 (0.16-1.47); MONOCYTES PERCENT MAN 6 % (4-13); NEUTROPHILS ABSOLUTE MAN 7.96 K/mm3 (1.96-9.15); SEG NEUTROPHILS PERCENT MAN 66 % (41-73); TOTAL CELLS COUNTED 100
[2018-06-05 05:00] LABS: Hematocrit 37.9 % (37.0-53.0); Mean Corpuscular HGB 29.2 pg (26.0-34.0); Mean Corpuscular HGB Conc 31.7 g/dL (31.5-36.5); Mean Corpuscular Volume 92 fL (80-100); Mean Platelet Volume 10.1 fL (9.1-12.4); Platelet Count 414 K/mm3 (150-400); RDW Coefficient Variation 15.2 % (11.7-14.2); RDW Standard Deviation 51.3 fL (35.1-46.3); Red Blood Cell Count 4.11 M/mm3 (4.30-5.90); White Blood Cell Count 12.02 K/mm3 (4.00-11.30)
[2018-06-05 05:23] LABS: Anion Gap 8 mmol/L (6-16); Blood Urea Nitrogen 24 mg/dL (8-24); Bun/Creatinine Ratio 23.5 (12.0-20.0); CO2, Blood 24 mmol/L (21-32); Calcium, Blood 9.8 mg/dL (8.5-10.1); Chloride, Blood 104 mmol/L (98-108); Creatinine, Blood 1.02 mg/dL (0.60-1.20); Glomerular Filtration Rate >60 (60-); Glucose, Blood 137 mg/dL (70-99); Potassium, Blood 4.3 mmol/L (3.5-5.5); Sodium, Blood 136 mmol/L (136-145)
[2018-06-06 04:58] LABS: Anion Gap 10 mmol/L (6-16); Blood Urea Nitrogen 34 mg/dL (8-24); Bun/Creatinine Ratio 30.4 (12.0-20.0); CO2, Blood 22 mmol/L (21-32); Calcium, Blood 9.4 mg/dL (8.5-10.1); Chloride, Blood 103 mmol/L (98-108); Creatinine, Blood 1.12 mg/dL (0.60-1.20); Glomerular Filtration Rate >60 (60-); Glucose, Blood 166 mg/dL (70-99); Potassium, Blood 4.2 mmol/L (3.5-5.5); Sodium, Blood 135 mmol/L (136-145)
[2018-06-06 05:07] LABS: Hematocrit 37.9 % (37.0-53.0); Hemoglobin 12.2 g/dL (13.5-17.5); Mean Corpuscular HGB 29.5 pg (26.0-34.0); Mean Corpuscular HGB Conc 32.2 g/dL (31.5-36.5); Mean Corpuscular Volume 92 fL (80-100); Mean Platelet Volume 10.7 fL (9.1-12.4); Platelet Count 379 K/mm3 (150-400); RDW Standard Deviation 50.9 fL (35.1-46.3); Red Blood Cell Count 4.14 M/mm3 (4.30-5.90); White Blood Cell Count 11.89 K/mm3 (4.00-11.30)
== END 2018-06-10 11:07 | DRG 559 ==
LOC: DELPENDDIS → ER 19:59 → MEDS 21:03 → ENPENDDIS 06-04 14:43 → MEDS 06-05 03:13 → ENPENDDIS 06-10 04:10 → EDPENDDIS 06-10 10:49 → ENPENDDIS 06-10 10:49 → MEDS 06-10 11:07
PROVIDERS: Internal Medicine; Internal Medicine Infectious Disease
PROC: 02HV33Z Insertion of Infusion Device into Superior Vena Cava, Percutaneous Approach (ICD-10-PCS; principal; 2018-06-09)
PROC: B548ZZA Ultrasonography of Superior Vena Cava, Guidance (ICD-10-PCS; 2018-06-09)
DX: T84.54XA Infection and inflammatory reaction due to internal left knee prosthesis, initial encounter (principal); A41.01 Sepsis due to Methicillin susceptible Staphylococcus aureus; I10 Essential (primary) hypertension; G89.29 Other chronic pain; F41.9 Anxiety disorder, unspecified; M54.5 Low back pain; E03.9 Hypothyroidism, unspecified; Z79.899 Other long term (current) drug therapy; Z87.891 Personal history of nicotine dependence; Z90.49 Acquired absence of other specified parts of digestive tract; Z98.1 Arthrodesis status; Z88.1 Allergy status to other antibiotic agents; Z74.09 Other reduced mobility
CPT/HCPCS: 36415; 36569; 73560-LT; 80048; 80053; 85007; 85027; 85651; 86140; 87040; 87070; 87075; 87077; 87147; 87186; 87205; 93308; 93321; 99285; C1751; J0878; J1650; J3010; J7030

== ENCOUNTER 2022-02-02 15:05 | Emergency (ER) | payer OTHER ==
[~2022-02-02] VITALS: Ht 406.4 cm; Wt 122.5 kg
[~2022-02-02 15:05] MED LIST changes: +CYCL10 PO; +FISH OIL 500 M1 EAC1 PO; +Hair, Skin & N1 EACH PO; +POTA8; +Saw Palmetto500 MG PO
[2022-02-02 15:57] LABS: BASOPHILS ABSOLUTE AUTO 0.13 K/mm3 (0.00-0.23); BASOPHILS PERCENT AUTO 1 % (0-2); EOSINOPHILS PERCENT AUTO 0 % (0-6); Hematocrit 48.9 % (37.0-53.0); Hemoglobin 16.5 g/dL (13.5-17.5); IMMATURE GRAN ABSOLUTE AUTO 0.13 K/mm3 (0.00-0.10); IMMATURE GRAN PERCENT AUTO 1 % (0-1); LYMPHOCYTES ABSOLUTE AUTO 3.18 K/mm3 (0.84-5.20); LYMPHOCYTES PERCENT AUTO 25 % (21-46); MONOCYTES PERCENT AUTO 7 % (4-13); Mean Corpuscular HGB 31.4 pg (26.0-34.0); Mean Corpuscular HGB Conc 33.7 g/dL (31.5-36.5); Mean Corpuscular Volume 93 fL (80-100); NEUTROPHILS ABSOLUTE AUTO 8.44 K/mm3 (1.96-9.15); NEUTROPHILS PERCENT AUTO 66 % (41-73); Platelet Count 307 K/mm3 (150-400); RDW Coefficient Variation 13.2 % (11.7-14.2); RDW Standard Deviation 45.2 fL (35.1-46.3); Red Blood Cell Count 5.26 M/mm3 (4.30-5.90); White Blood Cell Count 12.78 K/mm3 (4.00-11.30)
[2022-02-02 16:16] LABS: Alanine Aminotransfer (ALT/SGP 30 U/L (12-78); Albumin, Blood 3.6 g/dL (3.4-5.0); Albumin/Globulin Ratio 1.1 (0.8-1.8); Alk Phos 85 U/L (50-136); Anion Gap 3 mmol/L (6-16); Aspartate Aminotrans (AST/SGOT 11 U/L (12-37); Bilirubin, Total 0.3 mg/dL (0.1-1.0); Blood Urea Nitrogen 15 mg/dL (8-24); Bun/Creatinine Ratio 20.5 (12.0-20.0); CO2, Blood 26 mmol/L (21-32); Calcium, Blood 10.5 mg/dL (8.5-10.1); Chloride, Blood 105 mmol/L (98-108); Creatinine, Blood 0.73 mg/dL (0.60-1.20); Globulin, Blood 3.4 g/dL (2.2-4.0); Glomerular Filtration Rate >60 (60-); Glucose, Blood 325 mg/dL (70-99); Potassium, Blood 4.5 mmol/L (3.5-5.5); Sodium, Blood 134 mmol/L (136-145)
[2022-02-02 16:35] LABS: Influenza A, PCR NEGATIVE (NEGATIVE); Influenza B, PCR NEGATIVE (NEGATIVE); Resp Syncytial Virus, PCR NEGATIVE (NEGATIVE); SARS-Cov-2 (COVID-19) PCR, MMC NEGATIVE (NEGATIVE)
[2022-02-02 16:53] LABS: Base Excess Venous 3.1 mmol/L; Bicarbonate Venous 26.1 mmol/L (24.0-30.0); PCO2 Venous 46.9 mmHg (38-42); PO2 Venous 45.7 mmHg (38-42); pH Blood Venous 7.39 (7.34-7.37)
[2022-02-02] MEDS ORDERED: XARELTO20 MG PO (17:25)
[2022-02-02] MEDS ORDERED: ALBU90OI INH (20:52)
[2022-02-02] MEDS ORDERED: Amoxicillin875 MG PO (20:52)
== END 2022-02-02 21:56 | disposition home or self-care (01) ==
LOC: ER 15:05
PROVIDERS: Emergency Medicine; Physician Assistant
DX: J44.1 Chronic obstructive pulmonary disease with (acute) exacerbation (principal); Z20.822 Contact with and (suspected) exposure to COVID-19; I10 Essential (primary) hypertension; E03.9 Hypothyroidism, unspecified; F17.210 Nicotine dependence, cigarettes, uncomplicated; Z86.718 Personal history of other venous thrombosis and embolism; Z88.1 Allergy status to other antibiotic agents; Z79.899 Other long term (current) drug therapy
CPT/HCPCS: 0241U; 36415; 71045; 71260; 80053; 82803; 83605; 83880; 84484; 85025; 85379; 87040; 93005; 93010; 94640; 94664; 96365; 99285-25; A9270; J2543; J7030; Q9967

== ENCOUNTER 2023-07-20 09:10 | Emergency (ER) | payer OTHER ==
[~2023-07-20] VITALS: Ht 177.8 cm; Wt 136.1 kg
[~2023-07-20 09:10] MED LIST changes: +ALBU90OI INH; +Amoxicillin875 MG PO; +XARELTO20 MG PO
[2023-07-20 10:02] VITALS: BP 126/94
== END 2023-07-20 11:41 | disposition home or self-care (01) ==
LOC: ER 09:10
DX: M54.50 Low back pain, unspecified (principal); I10 Essential (primary) hypertension; E03.9 Hypothyroidism, unspecified; F17.210 Nicotine dependence, cigarettes, uncomplicated; M43.10 Spondylolisthesis, site unspecified; W18.30XA Fall on same level, unspecified, initial encounter; Z86.718 Personal history of other venous thrombosis and embolism; Z88.1 Allergy status to other antibiotic agents; Z79.899 Other long term (current) drug therapy; Z96.652 Presence of left artificial knee joint; Z79.01 Long term (current) use of anticoagulants
CPT/HCPCS: 72100; 99283-25

== ENCOUNTER 2023-10-03 12:39 | Inpatient (IN) | payer OTHER ==
[~2023-10-03] VITALS: Ht 177.8 cm; Wt 117.9 kg
[~2023-10-03 12:39] MED LIST changes: +GABA300 PO; -GABA600 PO
[2023-10-03 13:34] LABS: Source, Urine Foley catheter
[2023-10-03 13:56] LABS: Albumin, Blood 2.8 g/dL (3.4-5.0); Albumin/Globulin Ratio 0.9 (0.8-1.8); Bilirubin, Total 0.2 mg/dL (0.1-1.0); Bun/Creatinine Ratio 18.1 (12.0-20.0); Calcium, Blood 8.8 mg/dL (8.5-10.1); Creatinine, Blood 1.93 mg/dL (0.60-1.20); Globulin, Blood 3.1 g/dL (2.2-4.0); Potassium, Blood 4.6 mmol/L (3.5-5.5); Total Protein, Blood 5.9 g/dL (6.4-8.2)
[2023-10-03 14:40] LABS: BASOPHILS ABSOLUTE AUTO 0.12 K/mm3 (0.00-0.23); BASOPHILS PERCENT AUTO 1 % (0-2); EOSINOPHILS PERCENT AUTO 0 % (0-6); Hematocrit 43.7 % (37.0-53.0); Hemoglobin 14.8 g/dL (13.5-17.5); IMMATURE GRAN ABSOLUTE AUTO 0.19 K/mm3 (0.00-0.10); IMMATURE GRAN PERCENT AUTO 1 % (0-1); LYMPHOCYTES PERCENT AUTO 18 % (21-46); MONOCYTES ABSOLUTE AUTO 0.95 K/mm3 (0.16-1.47); MONOCYTES PERCENT AUTO 6 % (4-13); Mean Corpuscular HGB 30.9 pg (26.0-34.0); Mean Corpuscular HGB Conc 33.9 g/dL (31.5-36.5); Mean Corpuscular Volume 91 fL (80-100); Mean Platelet Volume 10.8 fL (9.1-12.4); NEUTROPHILS ABSOLUTE AUTO 12.88 K/mm3 (1.96-9.15); NEUTROPHILS PERCENT AUTO 75 % (41-73); Platelet Count 377 K/mm3 (150-400); RDW Coefficient Variation 13.3 % (11.7-14.2); RDW Standard Deviation 44.9 fL (35.1-46.3); Red Blood Cell Count 4.79 M/mm3 (4.30-5.90); White Blood Cell Count 17.24 K/mm3 (4.00-11.30)
[2023-10-03 14:42] LABS: Appearance, Urine Clear (Clear); Bilirubin, Urine Neg (Neg); Blood, Urine Neg (Neg); Color, Urine Yellow (P-Yellow); Glucose Qualitative, Urine 4+ (Neg); Ketones, Urine Neg (Neg); Leukocyte Esterase, Urine Neg (Neg); Nitrite, Urine Neg (Neg); Protein, Urine Neg (Neg); Specific Gravity, Urine 1.015 (1.003-1.022); Urobilinogen, Urine NORM (Normal)
[2023-10-03] MEDS ORDERED: ALOGLIPTIN25 M1 PO (23:16)
[2023-10-03] MEDS ORDERED: JARDIANCE25 MG PO (23:17)
[2023-10-03] MEDS ORDERED: TAMS.4ER PO (23:18)
[2023-10-03] MEDS ORDERED: ATOR10 PO (23:19)
[2023-10-03] MEDS ORDERED: LISI20 PO (23:21)
[2023-10-03 23:24] VITALS: BP 155/63
[2023-10-03] MEDS ORDERED: DULO30 PO (23:28)
[2023-10-04 00:27] LABS: Free Thyroxine 0.82 ng/dL (0.70-1.60); Thyroid Stimulating Hormone 2.2 uIU/mL (0.360-4.800)
[2023-10-04 01:38] LABS: BASOPHILS ABSOLUTE AUTO 0.12 K/mm3 (0.00-0.23); BASOPHILS PERCENT AUTO 1 % (0-2); EOSINOPHILS PERCENT AUTO 0 % (0-6); Hematocrit 45.3 % (37.0-53.0); Hemoglobin 15.5 g/dL (13.5-17.5); IMMATURE GRAN ABSOLUTE AUTO 0.19 K/mm3 (0.00-0.10); IMMATURE GRAN PERCENT AUTO 1 % (0-1); LYMPHOCYTES ABSOLUTE AUTO 3.32 K/mm3 (0.84-5.20); LYMPHOCYTES PERCENT AUTO 23 % (21-46); MONOCYTES ABSOLUTE AUTO 0.72 K/mm3 (0.16-1.47); MONOCYTES PERCENT AUTO 5 % (4-13); Mean Corpuscular HGB 30.5 pg (26.0-34.0); Mean Corpuscular HGB Conc 34.2 g/dL (31.5-36.5); Mean Corpuscular Volume 89 fL (80-100); Mean Platelet Volume 10.5 fL (9.1-12.4); NEUTROPHILS ABSOLUTE AUTO 10.18 K/mm3 (1.96-9.15); NEUTROPHILS PERCENT AUTO 70 % (41-73); Platelet Count 359 K/mm3 (150-400); RDW Coefficient Variation 13.2 % (11.7-14.2); RDW Standard Deviation 43.4 fL (35.1-46.3); Red Blood Cell Count 5.08 M/mm3 (4.30-5.90); White Blood Cell Count 14.53 K/mm3 (4.00-11.30)
[2023-10-04 01:45] LABS: Albumin, Blood 2.7 g/dL (3.4-5.0); Albumin/Globulin Ratio 0.9 (0.8-1.8); Bilirubin, Total 0.3 mg/dL (0.1-1.0); Bun/Creatinine Ratio 20.8 (12.0-20.0); Calcium, Blood 8.7 mg/dL (8.5-10.1); Creatinine, Blood 1.3 mg/dL (0.60-1.20); Potassium, Blood 4.3 mmol/L (3.5-5.5); Total Protein, Blood 5.7 g/dL (6.4-8.2)
[2023-10-04 02:19] VITALS: BP 126/70
--- NOTE | 2023-10-04 04:43 | NUR ---
SHIFT SUMMARY JAMIR WAS ADMITTED FROM THE ED AT AROUND 2320 WITH INCREASING WEAKNESS, SEPSIS, AND URINARY RETENTION AFTER HAVING BEEN TREATED FOR UTI "ABOUT 8 DAYS PRIOR" NEW JAEGER WAS PLACED IN ED AFTER EPISODE OF RETENTION OF 700ML PT WAS ALERT AND FULLY ORIENTED AND COOPERATIVE WITH CARE. PT IS DIABETIC AND CLAIMS THAT HE CHECKS HIS CBG ABOUT 3X PER WEEK NORMALLY, BUT HAS BEEN OUT OF TEST STRIPS FOR "A FEW WEEKS" IN THE ED HIS GLUCOSE WAS 422, AND DROPPED TO 190'S BY THE TIME HE WAS ADMITTED, PT DOES NOT USE INSULIN AT HOME AND MANAGES BLOOD SUGAR WITH DIET. PT HAS REDNESS ON BILATERAL SHINS AND HAS PRESSURE ULCERS ON TOES OF BOTH FEET, SEE PICS IN CHART. AT THIS TIME PT IS ASLEEP IN BED WITH CALL LIGHT IN REACH. INSULIN USE ORDERED WHILE IN HOSPITALCALL PLACED TO DR DURAN REGARDING PAIN MANAGEMENT @ AROUND 0045 PER SELF REPORT PT TAKES 10MG OXY Q6 AT HOME FOR CHRONIC PAIN, RENEE ORDERED 25-50mic FENTANYL Q6PRN. ADMISSION COMPLETED, PT HAS ESCHAR ON PINKY AND SECOND TOE R FOOT, AND SECOND TOE L FOOT, SEE PICS IN CHART. NO ACUTE EVENTS AFTER ADMISSION, NO NOTABLE CHANGES IN CONDITION. PT ON 2L VIA NC BECAUSE HE WAS DESATTING INTO THE 80'S DURING ADMISSION. PT RESTING IN BED IN A LOW POSITION WITH THE CALL LIGHT IN REACH.
[2023-10-04 07:13] VITALS: BP 137/50
[2023-10-04 08:47] LABS: U Amphetamine Screen Not Detected; U Barbituate Screen Not Detected; U Benzodiazapine Screen Not Detected; U Buprenorphine Screen Not Detected; U Cannabinoids Screen DETECTED; U Cocaine Screen Not Detected; U Methadone Screen Not Detected; U Methamphetamine Screen Not Detected; U Opiates Screen DETECTED; U Oxycodone Screen Not Detected; U Phencyclidine Screen Not Detected
[2023-10-04 14:48] VITALS: BP 131/73
--- NOTE | 2023-10-04 16:02 | NUR ---
MEPILEX APPLIED MEPILEX APPLIED TO PT'S COCCYX, REDNESS NOTED AFTER BM.
--- NOTE | 2023-10-04 17:31 | NUR ---
SHIFT SUMMARY PT A&OX4, VSS, AMB W/ SBA AND FWW, ACUTE/CHRONIC PAIN MANAGED W/ FENTANYL AND TYLENOL, VOIDING VIA JAEGER, AND TOLERATING PO. TELE AND FLUIDS D/C, NEW IV PLACED IN R AC, MEPILEX APPLIED TO COCCYX DUE TO REDNESS, AND V/Q SCAN THAT SHOWED LOW PROBABILITY OF PE THIS SHIFT. CALL LIGHT IS WITHIN REACH AND PT ABLE TO MAKE NEEDS KNOWN.
[2023-10-04 20:36] VITALS: BP 150/90
[2023-10-05 03:48] VITALS: BP 173/139
--- NOTE | 2023-10-05 04:40 | NUR ---
SHIFT SUMMARY JAMIR WAS ALERT AND FULLY ORIENTED ON ASSESMENT. PT STATES THAT HE FEELS LIKE HE IS FINALLY REGAINING SOME STRENGTH AND ENERGY. PT HAS 2L O2 VIA NC. HE MAINTAINS SATURATIONS ABOVE 90 WHILE NC IS APPLIED, BUT HAS DIFFICULTY KEEPING IT IN HIS NARES WHILE ASLEEP. ONE EPISODE OF DIARRHEA TONIGHT, NO ACUTE CHANGES IN CONDITION. PT MEDICATED FOR MODERATE PAIN.
[2023-10-05 05:45] LABS: BASOPHILS ABSOLUTE AUTO 0.07 K/mm3 (0.00-0.23); BASOPHILS PERCENT AUTO 1 % (0-2); EOSINOPHILS PERCENT AUTO 0 % (0-6); Hematocrit 44.7 % (37.0-53.0); IMMATURE GRAN ABSOLUTE AUTO 0.11 K/mm3 (0.00-0.10); IMMATURE GRAN PERCENT AUTO 1 % (0-1); LYMPHOCYTES ABSOLUTE AUTO 2.87 K/mm3 (0.84-5.20); LYMPHOCYTES PERCENT AUTO 24 % (21-46); MONOCYTES PERCENT AUTO 6 % (4-13); Mean Corpuscular HGB 30.2 pg (26.0-34.0); Mean Corpuscular HGB Conc 33.6 g/dL (31.5-36.5); Mean Corpuscular Volume 90 fL (80-100); Mean Platelet Volume 10.5 fL (9.1-12.4); NEUTROPHILS ABSOLUTE AUTO 8.09 K/mm3 (1.96-9.15); NEUTROPHILS PERCENT AUTO 68 % (41-73); Platelet Count 371 K/mm3 (150-400); RDW Coefficient Variation 13.3 % (11.7-14.2); RDW Standard Deviation 43.4 fL (35.1-46.3); Red Blood Cell Count 4.97 M/mm3 (4.30-5.90); White Blood Cell Count 11.84 K/mm3 (4.00-11.30)
[2023-10-05 05:59] LABS: Bun/Creatinine Ratio 22.1 (12.0-20.0); Calcium, Blood 9.2 mg/dL (8.5-10.1); Creatinine, Blood 0.77 mg/dL (0.60-1.20); Potassium, Blood 4.3 mmol/L (3.5-5.5)
[2023-10-05 07:34] VITALS: BP 159/73
[2023-10-05 16:36] VITALS: BP 154/78
--- NOTE | 2023-10-05 18:04 | NUR ---
SHIFT SUMMARY- PT ALERT AND ORIENTED 1PA WITH TRANSFERS. JAEGER IN PLACE FOR RETENTION AND THE PT WILL DC WITH THE JAEGER IN PLACE PER MD. PLAN FOR POSSIBLE DC HOME TOMORROW. PT RECIEVED IVF TODAY, IV IS CURRENTLY SL AT THIS TIME. PT IS A BIT MORE CRANKY THIS EVENING THAN HE WAS THIS MORNING. PT IN BED, EATING DINNER NO S&S OF DISTRESS NOTED. WILL PASS ON IN REPORT TO NIGHT RN.
[2023-10-05 19:27] VITALS: BP 148/74
[2023-10-06 07:15] VITALS: BP 150/99
--- NOTE | 2023-10-06 07:47 | NUR ---
SHIFT SUMMARY PT A&OX4, VSS ON ROOM AIR. GERTRUDE IS ANGRY, AND NOT VERY KIND TO STAFF, DEMANDING AT TIMES. REFUSING TO ALLOW VITAL SIGNS OR CARES AT TIMES. C/O BLE PAIN AND LOWER BACK PAIN 05/11, MANAGED WITH PRN MEDICATIONS, SEE EMAR. REQUESTED I CALL THE DR AND ASK FOR IBUPROFEN THAT HE TAKES AT HOME, ALTHOUGH NOT ON HIS HOME MEDICATION LIST. TYLENOL WAS ORDERED. TOLERATING AN ADA DIET, NOT SURE OF THE NEW DIABETIC DIGNOSIS. JAEGER CATHETER DRAINING LARGE AMOUNTS OF CLEAR YELLOW URINE. NO BM THIS SHIFT. NOT OOB THIS SHIFT. BED IN LOWEST POSITION, CALL LIGHT WITHIN REACH. FIRE SAFETY CHECKS COMPLETED
--- NOTE | 2023-10-06 15:09 | NUR ---
DISCHARGE: PT D/C @1340 VIA WHEELCHAIR WITH DAUGHTER. MEDICATIONS FAXED TO [facility]. HARD SCRIPT FOR PAIN MEDICATION GIVEN TO PT WITH D/C PACKET. HOME HEALTH TO ARRIVE TO PT HOME @1700 TONIGHT. PT STILL UNSTEADY ON FEET. JAEGER CATH IN PLACE AND DRAINING YELLOW URINE TO GRAVITY UPON D/C. IV REMOVED W/O COMPLICATIONS.
[2023-10-07 21:11] LABS: HEMOGLOBIN A1C 11.6 % (4.8-5.6)
== END 2023-10-06 13:40 | disposition home health service (06) | DRG 683 ==
LOC: ER 12:39 → MEDS 12:40
PROVIDERS: Emergency Medicine; Internal Medicine; ADMIT Internal Medicine
DX: N17.9 Acute kidney failure, unspecified (principal); E87.20 Acidosis, unspecified; L03.115 Cellulitis of right lower limb; E86.0 Dehydration; R33.9 Retention of urine, unspecified; N13.30 Unspecified hydronephrosis; I95.9 Hypotension, unspecified; F41.9 Anxiety disorder, unspecified; F32.A Depression, unspecified; I10 Essential (primary) hypertension; E03.9 Hypothyroidism, unspecified; M43.16 Spondylolisthesis, lumbar region; M48.061 Spinal stenosis, lumbar region without neurogenic claudication; F17.210 Nicotine dependence, cigarettes, uncomplicated; R73.9 Hyperglycemia, unspecified; E66.9 Obesity, unspecified; R91.8 Other nonspecific abnormal finding of lung field; M47.816 Spondylosis without myelopathy or radiculopathy, lumbar region; Z88.1 Allergy status to other antibiotic agents; Z79.01 Long term (current) use of anticoagulants; Z79.891 Long term (current) use of opiate analgesic; Z86.718 Personal history of other venous thrombosis and embolism; Z79.890 Hormone replacement therapy; Z68.37 Body mass index [BMI] 37.0-37.9, adult
CPT/HCPCS: 36415; 51702; 51798; 71045; 71260; 72132; 76770; 78580; 80048; 80053; 81003; 82947; 83605; 83880; 84145; 84439; 84443; 85025; 85379; 85651; 86140; 93005; 93010; 93306; 94760; 96361-59; 96365-59; 96367-59; 96375; 96376; 97110; 97162; 97530; 99285-25; A9270; A9540; G0378; J0878; J1815; J2185; J3010; J7030; J7060; J7120; Q9967

== ENCOUNTER 2024-04-23 22:16 | Inpatient (IN) | payer OTHER ==
[~2024-04-23] VITALS: Ht 177.8 cm; Wt 90.7 kg
[~2024-04-23 22:16] MED LIST changes: +ALBU2.5V5 INH; +ALOGLIPTIN25 M1 PO; +ATOR10 PO; +ATOR20 PO; +BASAGLAR K100 UNIT/1 SC; +CEFAZOLIN SODIUM1 G1 INJ; +DOCU100 PO; +DULO30 PO; +EUTHYROX50 MCG PO; +FISH OIL 1,0001 EA10 PO; -FISH OIL 500 M1 EAC1 PO; +GUAI600T33 PO; +INSULIN GL300 UNIT/1 SC; +JARDIANCE25 MG PO; +LACT PO; -LEVSOD50 PO; +LISI20 PO; +MIRALAX17 GM PO; +NICO21TP TOP; +NOVOLOG FL100 UNIT/3 SC; +NOVOLOG100 UNIT/3 SC; +OMEP20ER PO; +SAW PALMETTO PO; +STIOLTO RESPIMAT4 G2 INH; -Saw Palmetto500 MG PO; +TAMS.4ER PO; +THERA-D2000 UNIT PO; +XARELTO10 M2 PO; -XARELTO20 MG PO; +ZESTRIL40 M1 PO
[2024-04-23] MEDS ORDERED: LevoFLOXacin 750 MG/D5W 150ML 150 ML IV ONE (23:30)
[2024-04-23 23:44] LABS: BASOPHILS ABSOLUTE AUTO 0.12 K/mm3 (0.00-0.23); BASOPHILS PERCENT AUTO 1 % (0-2); EOSINOPHILS PERCENT AUTO 0 % (0-6); Hematocrit 43.3 % (37.0-53.0); Hemoglobin 14.4 g/dL (13.5-17.5); IMMATURE GRAN ABSOLUTE AUTO 0.15 K/mm3 (0.00-0.10); IMMATURE GRAN PERCENT AUTO 1 % (0-1); LYMPHOCYTES ABSOLUTE AUTO 2.36 K/mm3 (0.84-5.20); LYMPHOCYTES PERCENT AUTO 15 % (21-46); MONOCYTES ABSOLUTE AUTO 1.66 K/mm3 (0.16-1.47); MONOCYTES PERCENT AUTO 11 % (4-13); Mean Corpuscular HGB 28.5 pg (26.0-34.0); Mean Corpuscular HGB Conc 33.3 g/dL (31.5-36.5); Mean Corpuscular Volume 86 fL (80-100); Mean Platelet Volume 10.1 fL (9.1-12.4); NEUTROPHILS ABSOLUTE AUTO 11.25 K/mm3 (1.96-9.15); NEUTROPHILS PERCENT AUTO 72 % (41-73); Platelet Count 465 K/mm3 (150-400); RDW Coefficient Variation 13.5 % (11.7-14.2); RDW Standard Deviation 42.1 fL (35.1-46.3); Red Blood Cell Count 5.05 M/mm3 (4.30-5.90); White Blood Cell Count 15.54 K/mm3 (4.00-11.30)
[2024-04-23 23:46] LABS: Base Excess Venous -6.8 mmol/L; Bicarbonate Venous 19.4 mmol/L (24.0-30.0); PCO2 Venous 34.9 mmHg (38-42); pH Blood Venous 7.34 (7.34-7.37)
[2024-04-23 23:58] LABS: International Normalized Ratio 1.26; Prothrombin Time Results 13.3 Sec (9.7-11.5)
[2024-04-24 00:05] LABS: Alanine Aminotransfer (ALT/SGP 10 U/L (12-78); Albumin, Blood 2.6 g/dL (3.4-5.0); Albumin/Globulin Ratio 0.5 (0.8-1.8); Alk Phos 124 U/L (50-136); Anion Gap 12 mmol/L (3-11); Aspartate Aminotrans (AST/SGOT 7 U/L (12-37); Bilirubin, Total 0.4 mg/dL (0.1-1.0); Blood Urea Nitrogen 69 mg/dL (8-24); Bun/Creatinine Ratio 29.4 (12.0-20.0); CO2, Blood 20 mmol/L (21-32); Calcium, Blood 10.5 mg/dL (8.5-10.1); Chloride, Blood 106 mmol/L (98-108); Creatinine, Blood 2.35 mg/dL (0.60-1.20); Ethanol (Alcohol), Blood, Med <3 mg/dL; Globulin, Blood 5.5 g/dL (2.2-4.0); Glomerular Filtration Rate 29 (60-); Glucose, Blood 213 mg/dL (70-99); Magnesium, Blood 1.9 mg/dL (1.6-2.4); Potassium, Blood 5.7 mmol/L (3.5-5.5); Sodium, Blood 132 mmol/L (136-145); Total Protein, Blood 8.1 g/dL (6.4-8.2)
[2024-04-24 00:46] LABS: Influenza A, PCR NEGATIVE (NEGATIVE); Influenza B, PCR NEGATIVE (NEGATIVE); Resp Syncytial Virus, PCR NEGATIVE (NEGATIVE); SARS-Cov-2 (COVID-19) PCR, MMC NEGATIVE (NEGATIVE)
[2024-04-24 00:58] LABS: Source, Urine Clean Catch
[2024-04-24 01:06] LABS: Appearance, Urine Cloudy (Clear); Bilirubin, Urine Neg (Neg); Blood, Urine 4+ (Neg); Color, Urine Yellow (P-Yellow); Glucose Qualitative, Urine 2+ (Neg); Ketones, Urine Neg (Neg); Leukocyte Esterase, Urine 3+ (Neg); Nitrite, Urine Neg (Neg); Protein, Urine 2+ (Neg); Urobilinogen, Urine NORM (Normal)
[2024-04-24 01:11] LABS: Bacteria Many /hpf; Squamous Epithelial Cells Rare /hpf (Few); White Blood Cells, Urine TNTC /hpf (0-5)
[2024-04-24] MEDS ORDERED: HYDROcodone 5-APAP 325 TAB PO PRN (02:25)
[2024-04-24] MEDS ORDERED: Cyclobenzaprine HCl 10 MG Tab PO PRN (02:25)
[2024-04-24] MEDS ORDERED: Docusate Sodium 100 MG Cap PO PRN (02:25)
[2024-04-24] MEDS ORDERED: Magnesium Hydroxide Conc 10 ML UDC PO PRN (02:30)
[2024-04-24] MEDS ORDERED: Ipratropium/Albuterol SulF 2.5-0.5MG/3 ML Amp INH SCH (02:30)
[2024-04-24] MEDS ORDERED: Albuterol 2.5 MG/3 ML VIAL INH PRN (02:30)
[2024-04-24] MEDS ORDERED: Bisacodyl 10 MG Supp PR PRN (02:30)
[2024-04-24] MEDS ORDERED: HydrALAZINE HCl 20 MG / ML 1ML Vial IV PRN (02:35)
[2024-04-24] MEDS ORDERED: NS 1,000 ML IV SCH ×2 (03:00→18:00)
[2024-04-24] MEDS ORDERED: NS 1,000 ML IV ONE (03:03)
[2024-04-24] MEDS ORDERED: Albuterol HFA200 ACT/6.7 GM INH INH PRN (04:10)
[2024-04-24] MEDS ORDERED: Omeprazole 20 MG CapCR PO SCH (06:00)
[2024-04-24] MEDS ORDERED: Levothyroxine Sodium 0.05 MG Tab PO SCH (06:00)
[2024-04-24] MEDS ORDERED: Sodium Bicarb 8.4% Inj 75 MEQ in Sodium Chloride 0.45% 1,000 ML IV SCH (06:50)
[2024-04-24] MEDS ORDERED: Sodium Bicarb 8.4% 1 MEQ/ML 50 ML Vial IV ONE (07:00)
[2024-04-24] MEDS ORDERED: Insulin Human Lispro 100 Units/ML 3ML Syringe SC SCH (07:30)
[2024-04-24] MEDS ORDERED: Gabapentin 300 MG Cap PO SCH ×2 (09:00)
[2024-04-24] MEDS ORDERED: Alogliptin Benzoate 6.25 MG TABLET PO SCH (09:00)
[2024-04-24] MEDS ORDERED: Rivaroxaban 10 MG Tab PO SCH (09:00)
[2024-04-24] MEDS ORDERED: Atenolol 25 MG Tab PO SCH (09:00)
[2024-04-24] MEDS ORDERED: DULoxetine HCL 30 MG Cap DR PO SCH (09:00)
[2024-04-24] MEDS ORDERED: Empagliflozin 25 MG TAB PO SCH (09:00)
[2024-04-24] MEDS ORDERED: Atorvastatin 10 MG Tab PO SCH (09:00)
[2024-04-24] MEDS ORDERED: DULoxetine HCL 60 MG Capsule DR PO SCH (09:00)
[2024-04-24] MEDS ORDERED: GuaiFENesin 600 MG TabCR PO SCH (09:00)
[2024-04-24] MEDS ORDERED: Lactobacil 2-S.Thermo-Bifido 1 1 Cap PO SCH (09:00)
[2024-04-24 10:02] LABS: BASOPHILS ABSOLUTE AUTO 0.08 K/mm3 (0.00-0.23); BASOPHILS PERCENT AUTO 1 % (0-2); EOSINOPHILS PERCENT AUTO 0 % (0-6); Hemoglobin 12.6 g/dL (13.5-17.5); IMMATURE GRAN ABSOLUTE AUTO 0.09 K/mm3 (0.00-0.10); IMMATURE GRAN PERCENT AUTO 1 % (0-1); LYMPHOCYTES ABSOLUTE AUTO 1.82 K/mm3 (0.84-5.20); LYMPHOCYTES PERCENT AUTO 15 % (21-46); MONOCYTES ABSOLUTE AUTO 1.35 K/mm3 (0.16-1.47); MONOCYTES PERCENT AUTO 11 % (4-13); Mean Corpuscular HGB 28.7 pg (26.0-34.0); Mean Corpuscular HGB Conc 33.2 g/dL (31.5-36.5); Mean Corpuscular Volume 87 fL (80-100); Mean Platelet Volume 9.7 fL (9.1-12.4); NEUTROPHILS ABSOLUTE AUTO 8.46 K/mm3 (1.96-9.15); NEUTROPHILS PERCENT AUTO 72 % (41-73); Platelet Count 394 K/mm3 (150-400); RDW Coefficient Variation 13.5 % (11.7-14.2); RDW Standard Deviation 42.3 fL (35.1-46.3); Red Blood Cell Count 4.39 M/mm3 (4.30-5.90)
[2024-04-24 10:35] LABS: Albumin, Blood 2.2 g/dL (3.4-5.0); Albumin/Globulin Ratio 0.5 (0.8-1.8); Bilirubin, Total 0.3 mg/dL (0.1-1.0); Bun/Creatinine Ratio 28.7 (12.0-20.0); Calcium, Blood 9.7 mg/dL (8.5-10.1); Creatinine, Blood 2.02 mg/dL (0.60-1.20); Globulin, Blood 4.7 g/dL (2.2-4.0); Potassium, Blood 5.1 mmol/L (3.5-5.5); Total Protein, Blood 6.9 g/dL (6.4-8.2)
[2024-04-24 14:44] VITALS: BP 117/70
--- NOTE | 2024-04-24 14:45 | NUR ---
MED REC CALLED [facility] TO REQUEST A COPY BE FAXED TO MEDICAL FLOOR. CARE ONGOING.
--- NOTE | 2024-04-24 14:47 | NUR ---
pt arrived to 333 via gurney from ED, pt is a/ox3 to 4, lungs are clear, dim in bases, resp even and unlabored, no cough noted, on r/a, hrr, 1+ edema noted to b/l le, pp faint, cap refill <3 sec, vs stable, afebrile, piv to rac site is clear and patent, btx4, abd round soft nontender, lange cath in place draining turbid white urine, is incont of stool, briefs in place, skin c/w/d, has a pea size spot on bottom that looks to be healing, sarah israel, call light in reach.
[2024-04-24] MEDS ORDERED: ALFU10 PO (15:16)
[2024-04-24] MEDS ORDERED: BISA10S PR (15:17)
[2024-04-24] MEDS ORDERED: FINA5 PO (15:17)
[2024-04-24] MEDS ORDERED: BASAGLAR K100 UNIT/3 SC (15:19)
[2024-04-24] MEDS ORDERED: HUMALOG KW100 UNIT/1 SC (15:21)
[2024-04-24] MEDS ORDERED: IBUP200 PO (15:21)
[2024-04-24] MEDS ORDERED: SENN187 PO (15:22)
[2024-04-24] MEDS ORDERED: DULCOLAX400 MG/5 M PO (15:22)
--- NOTE | 2024-04-24 15:27 | NUR ---
MED REC. MEDICATIONS RECORD RECEIVED FROM [facility]. PT MED/REC RECONSILED AGAINST THIS RECORD. CARE ONGOING.
--- NOTE | 2024-04-24 18:50 | NUR ---
pt resting in bed ate dinner without diff, daughter was in to see him, no acute changes this shift, call light in reach.
[2024-04-24 19:22] VITALS: BP 132/71
[2024-04-24] MEDS ORDERED: Insulin Glargine-Yfgn 100 Unit/mL 3 ML SYR SC SCH (21:00)
[2024-04-24] MEDS ORDERED: Tamsulosin HCl 0.4 MG Cap PO SCH ×2 (21:00)
[2024-04-25 03:23] VITALS: BP 143/82
[2024-04-25 05:08] LABS: BASOPHILS ABSOLUTE AUTO 0.08 K/mm3 (0.00-0.23); BASOPHILS PERCENT AUTO 1 % (0-2); EOSINOPHILS PERCENT AUTO 0 % (0-6); Hematocrit 39.3 % (37.0-53.0); IMMATURE GRAN ABSOLUTE AUTO 0.12 K/mm3 (0.00-0.10); IMMATURE GRAN PERCENT AUTO 1 % (0-1); LYMPHOCYTES ABSOLUTE AUTO 2.18 K/mm3 (0.84-5.20); LYMPHOCYTES PERCENT AUTO 19 % (21-46); MONOCYTES ABSOLUTE AUTO 1.48 K/mm3 (0.16-1.47); MONOCYTES PERCENT AUTO 13 % (4-13); Mean Corpuscular HGB 28.6 pg (26.0-34.0); Mean Corpuscular HGB Conc 33.1 g/dL (31.5-36.5); Mean Corpuscular Volume 86 fL (80-100); Mean Platelet Volume 9.6 fL (9.1-12.4); NEUTROPHILS ABSOLUTE AUTO 7.74 K/mm3 (1.96-9.15); NEUTROPHILS PERCENT AUTO 67 % (41-73); Platelet Count 411 K/mm3 (150-400); RDW Coefficient Variation 13.6 % (11.7-14.2); RDW Standard Deviation 42.5 fL (35.1-46.3); Red Blood Cell Count 4.55 M/mm3 (4.30-5.90)
[2024-04-25 05:30] LABS: Albumin, Blood 2.3 g/dL (3.4-5.0); Anion Gap 9 mmol/L (3-11); Blood Urea Nitrogen 45 mg/dL (8-24); CO2, Blood 24 mmol/L (21-32); Calcium, Blood 10.2 mg/dL (8.5-10.1); Chloride, Blood 111 mmol/L (98-108); Creatinine, Blood 1.55 mg/dL (0.60-1.20); Glomerular Filtration Rate 48 (60-); Glucose, Blood 164 mg/dL (70-99); Phosphorus, Blood 3.1 mg/dL (2.5-4.9); Potassium, Blood 4.5 mmol/L (3.5-5.5); Sodium, Blood 139 mmol/L (136-145)
--- NOTE | 2024-04-25 06:32 | NUR ---
Patient alert and oriented x4, VSS, compliant with care and medications. NS @ 75 mL/hr infusing into left forearm PIV, tolerating well. Blackwood catheter in place and draining appropriately. Patient repositioning self in bed frequently overnight.
[2024-04-25 07:18] VITALS: BP 132/78
[2024-04-25 11:55] VITALS: BP 124/73
[2024-04-25] MEDS ORDERED: Betamethasone/Clotrimazole Crm 15 gm TOP SCH (12:00)
[2024-04-25 15:03] VITALS: BP 147/76
--- NOTE | 2024-04-25 18:42 | NUR ---
SHIFT SUMMARY PATIENT A/OX4. CHRONIC JAEGER IN PLACE DRAINING YELLOW URINE, NO CONCERNS. TELEMETRY IN PLACE, NO EVENTS NOTED. PHYSICAL THERAPY ASSESSED PATIENT TODAY, 2 PERSON STAND PIVOT TRANSFER. ROOFING SALES REPRESENTATIVE EVAL TODAY AND PATIENT WAS PLACED ON MINCED ADN MOIST DIET, WITH THIN LIQUIDS, NEEDS SUPERVISION FOR MEALS. PATIENT WITH RASH TO RIGHT SIDE OF ABDOMEN AND CREAM APPLIED PER MAR. NO OTHER CONCERNS AT THIS TIME.
[2024-04-25 19:44] VITALS: BP 137/71
[2024-04-25] MEDS ORDERED: LevoFLOXacin 750 MG/D5W 150ML 150 ML IV SCH (21:00)
[2024-04-26] MEDS ORDERED: FentaNYL Citrate 50 MCG/ML 2 ML Injection IV PRN ×2 (05:40→08:00)
--- NOTE | 2024-04-26 06:13 | NUR ---
SHIFT SUMMARY PT A&O X3-4 AND ANSWERS QUESTIONS APPROPRIATELY. PT PAIN STAYED AT A 7 FOR MOST OF THE SHIFT. PT AND NURSE FOUND THAT HIS HOME DOSE OF NORCO IS HIGHER THAN THE EMAR. DR CALLED AND FENTANYL 25-50MCG ORDERED. PT PAIN MANAGED WITH THE ADMINISTRATION OF FENTANYL AND PT ABLE TO REST. PT VSS, NO COMPLAINTS OF CP/PRESSURE OR SOB. HS MEDICATION ADMINISTERED AND PRN MEDS. NO ACUTE EVENTS AT THIS TIME. PT SPENT MOST OF THE SHIFT WITH EYES CLOSED AND RESPIRATIONS EVEN AND UNLABORED. PT LEFT IN A POSITION OF SAFETY WITH PROPER FALL PREACUTIONS IN PLACE AND CALL LIGHT IN REACH.
[2024-04-26 07:29] VITALS: BP 145/74
[2024-04-26] MEDS ORDERED: Polyethylene Glycol 3350 17 gm PO PRN (08:00)
[2024-04-26] MEDS ORDERED: HYDROcodone 5-APAP 325 TAB PO PRN (08:00)
[2024-04-26] MEDS ORDERED: Cholecalciferol 1000 Unit Tablet (=25MCG) PO SCH (09:00)
[2024-04-26 14:34] VITALS: BP 143/76
--- NOTE | 2024-04-26 18:22 | NUR ---
SUMMARY- AAOX3 THIS SHIFT. PT ADVANCED TO ADA DIET FROM M&M. X1 ASSIST TO CHAIR. PT MEDICATED WITH NORCO 10 TWICE THIS SHIFT FOR BACK PAIN.
[2024-04-26 19:47] VITALS: BP 145/79
[2024-04-26] MEDS ORDERED: Docusate Sodium/Senna 1 Tab PO SCH (21:00)
[2024-04-27 03:36] VITALS: BP 155/76
--- NOTE | 2024-04-27 05:40 | NUR ---
PT A&OX3 AND ANSWERS QUESTIONS APPROPRIATELY. PT RECEIVED HS MEDICATIONS AND PRN MEDICATION FOR PAIN. CATH CARE PROVIDED. VSS, NO COMPLAINTS OF CP/PRESSURE OR SOB. NO ACUTE EVENTS AT THIS TIME. PT SPENT MOST OF SHIFT WITH EYES CLOSED AND RESPIRATIONS EVEN AND UNLABORED. PROPER FALL PRECAUTIONS IN PLACE AND CALL LIGHT IN REACH.
[2024-04-27 07:18] VITALS: BP 142/68
[2024-04-27 08:23] LABS: Hemoglobin 13.3 g/dL (13.5-17.5); Mean Corpuscular HGB 28.5 pg (26.0-34.0); Mean Corpuscular HGB Conc 33.3 g/dL (31.5-36.5); Mean Corpuscular Volume 86 fL (80-100); Mean Platelet Volume 9.4 fL (9.1-12.4); Platelet Count 437 K/mm3 (150-400); RDW Coefficient Variation 13.4 % (11.7-14.2); Red Blood Cell Count 4.66 M/mm3 (4.30-5.90)
[2024-04-27 08:38] LABS: Bun/Creatinine Ratio 21.5 (12.0-20.0); Calcium, Blood 9.8 mg/dL (8.5-10.1); Creatinine, Blood 1.07 mg/dL (0.60-1.20); Potassium, Blood 4.3 mmol/L (3.5-5.5)
[2024-04-27 11:08] LABS: SARS-Cov-2 (COVID-19) PCR, MMC NEGATIVE (NEGATIVE)
[2024-04-27] MEDS ORDERED: HYDR1TAB94 PO (11:26)
--- NOTE | 2024-04-27 16:04 | NUR ---
PT AWAKE AT START OF SHIFT. PLEASANT AND CO-OP W/CARE. UP TO CHAIR FOR MEALS USING 2P ASSIST AND FWW/GB. PT ABLE TO WORK WITH THERAPY. DR MTZ IN TO SEE PT THIS AM. RASH TO R SIDE MUCH IMPROVED. NO C/O. PT ABLE TO D/C BACK TO [facility] THIS AFTERNOON. SMOCKING MACHINE OPERATOR ASSISTED WITH TX ARRANGEMENTS. PT MEDICATED FOR C/O BACK PAIN PRIOR TO D/C.
== END 2024-04-27 15:04 | DRG 871 ==
LOC: ER 22:16 → ERHOLD 04-24 02:27 → MEDS 04-24 02:27 → ENPENDDIS 04-27 11:02 → MEDS 04-27 15:04
PROVIDERS: Emergency Medicine; Family Medicine; Internal Medicine; Student in an Organized Health Care Education/Training Program; ADMIT Internal Medicine
DX: A41.9 Sepsis, unspecified organism (principal); G93.41 Metabolic encephalopathy; J69.0 Pneumonitis due to inhalation of food and vomit; J18.9 Pneumonia, unspecified organism; T83.511A Infection and inflammatory reaction due to indwelling urethral catheter, initial encounter; N17.9 Acute kidney failure, unspecified; J44.0 Chronic obstructive pulmonary disease with (acute) lower respiratory infection; N39.0 Urinary tract infection, site not specified; E86.0 Dehydration; M48.061 Spinal stenosis, lumbar region without neurogenic claudication; I10 Essential (primary) hypertension; K59.00 Constipation, unspecified; Z96.652 Presence of left artificial knee joint; E66.9 Obesity, unspecified; E03.9 Hypothyroidism, unspecified; Z86.718 Personal history of other venous thrombosis and embolism; G89.29 Other chronic pain; Z88.1 Allergy status to other antibiotic agents; Z88.8 Allergy status to other drugs, medicaments and biological substances; R65.20 Severe sepsis without septic shock; Z79.891 Long term (current) use of opiate analgesic; Z79.899 Other long term (current) drug therapy; Z79.4 Long term (current) use of insulin; Z79.890 Hormone replacement therapy; Z90.49 Acquired absence of other specified parts of digestive tract; Z90.89 Acquired absence of other organs; Z98.890 Other specified postprocedural states; Z79.01 Long term (current) use of anticoagulants; Y84.6 Urinary catheterization as the cause of abnormal reaction of the patient, or of later complication, without mention of misadventure at the time of the procedure; R31.9 Hematuria, unspecified; R21 Rash and other nonspecific skin eruption
CPT/HCPCS: 0241U; 36415; 51702; 71045; 80048; 80053; 80069; 81001; 82140; 82803; 82947; 83605; 83690; 83735; 83880; 84145; 84484; 85025; 85027; 85610; 87040; 87086; 92526; 92610; 93005; 93010; 94762; 96365; 97110; 97110-CQ; 97116; 97162; 97165; 97530; 97530-CQ; 97535; 99285-25; A9270; J1815; J1956; J3010; J7030; U0002

== ENCOUNTER 2024-10-07 10:05 | Day surgery (SDC) | payer OTHER ==
[~2024-10-07] VITALS: Ht 182.9 cm; Wt 111.6 kg
[~2024-10-07 10:05] MED LIST changes: +ACET325 PO; +ALFU10 PO; +BASAGLAR K100 UNIT/3 SC; +BISA10S PR; +DHA FROM ALGAE200 MG; +DULCOLAX400 MG/5 M PO; +FINA5 PO; +FLUTICASONE PRO12 GM INH; +Florastor250 MG PO; +HUMALOG KW100 UNIT/1 SC; +IBUP200 PO; +INSULANPEN SC; +Lactated Ringer's 1,000 ML IV ONE; +SENN187 PO
[2024-10-07] MEDS ORDERED: Lactated Ringer's 1,000 ML IV ONE (12:45)
[2024-10-07] MEDS ORDERED: Lidocaine HCl 4% 5 ML SDA ONE (12:58)
[2024-10-07] MEDS ORDERED: propofoL 50 ML IV ONE (13:15)
[2024-10-07 15:21] VITALS: BP 128/78
--- NOTE | 2024-10-07 15:49 | NUR ---
10/07/24 1549 JORDON CARDONA PT TOLLERATED STAND PIVOT TRANFER NELIA TO WC. BRIEF UNWANTED PER PT. CATH BAG DRAINED 350ML PRIOR TO DC. CLEAR YELLOW URINE. END NOTE RDS
== END 2024-10-07 15:44 | disposition home or self-care (01) ==
LOC: ORSCSDS 10:05
PROVIDERS: Internal Medicine Gastroenterology
PROC: 0DB98ZX Excision of Duodenum, Via Natural or Artificial Opening Endoscopic, Diagnostic (ICD-10-PCS; principal; 2024-10-07 12:15)
PROC: 0DBH8ZX Excision of Cecum, Via Natural or Artificial Opening Endoscopic, Diagnostic (ICD-10-PCS; principal; 2024-10-07 12:15)
PROC: 0D757ZZ Dilation of Esophagus, Via Natural or Artificial Opening (ICD-10-PCS; principal; 2024-10-07 12:15)
PROC: 0DBK8ZX Excision of Ascending Colon, Via Natural or Artificial Opening Endoscopic, Diagnostic (ICD-10-PCS; principal; 2024-10-07 12:15)
PROC: 0DB78ZX Excision of Stomach, Pylorus, Via Natural or Artificial Opening Endoscopic, Diagnostic (ICD-10-PCS; principal; 2024-10-07 12:15)
PROC: 0DBN8ZX Excision of Sigmoid Colon, Via Natural or Artificial Opening Endoscopic, Diagnostic (ICD-10-PCS; principal; 2024-10-07 12:15)
PROC: 0DBP8ZX Excision of Rectum, Via Natural or Artificial Opening Endoscopic, Diagnostic (ICD-10-PCS; principal; 2024-10-07 12:15)
DX: R13.10 Dysphagia, unspecified (principal); R10.32 Left lower quadrant pain; R19.4 Change in bowel habit; K21.9 Gastro-esophageal reflux disease without esophagitis; D12.5 Benign neoplasm of sigmoid colon; K63.5 Polyp of colon; D12.0 Benign neoplasm of cecum; D12.2 Benign neoplasm of ascending colon; K62.1 Rectal polyp; K57.30 Diverticulosis of large intestine without perforation or abscess without bleeding; K64.8 Other hemorrhoids; K64.4 Residual hemorrhoidal skin tags; L53.8 Other specified erythematous conditions; Z86.718 Personal history of other venous thrombosis and embolism; Z79.01 Long term (current) use of anticoagulants; I10 Essential (primary) hypertension; J44.89 Other specified chronic obstructive pulmonary disease; F17.210 Nicotine dependence, cigarettes, uncomplicated; E11.9 Type 2 diabetes mellitus without complications; E03.9 Hypothyroidism, unspecified; E66.9 Obesity, unspecified; Z68.33 Body mass index [BMI] 33.0-33.9, adult; Z79.899 Other long term (current) drug therapy; Z79.4 Long term (current) use of insulin; Z79.85 Long-term (current) use of injectable non-insulin antidiabetic drugs
CPT/HCPCS: 82947; 88305; 88342; J2003; J2704; J7120